=== PATIENT | female | born 1965 | race Caucasian/White ===

== ENCOUNTER 2023-04-24 18:29 | Emergency (ER) | payer BC, SELFPAY ==
--- NOTE | ~2023-04-24 | XR_ITS ---
EXAMINATION: [id number] INDICATION: Left-sided chest pain TECHNIQUE: A frontal view of the chest and 3 views of the left ribs were obtained. COMPARISON: 06/30/2019 FINDINGS: There are minimal airspace opacities of the left lung base. There is an acute, minimally di splaced fracture at the anterolateral aspect of the left sixth rib. There is a small pleural effusion . No pneumothorax is identified. Median sternotomy wires are consistent with interval cardiac surgery . Also noted are embolization coils in the right upper quadrant. IMPRESSION: 1. Acute, minimally displaced anterolateral fracture of the left sixth rib. 2. Minimal left basilar airspace opacity, likely atelectasis. Reviewed, dictated and finalized at location F.
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
[2023-04-24 18:50] VITALS: BP 163/100; PULSE 74; RESP 20; TEMP 36.5; O2SAT 99
== END 2023-04-24 19:48 | disposition home or self-care (01) ==
PROVIDERS: Emergency Provider Nurse Practitioner
DX: S22.32XA Fracture of one rib, left side, initial encounter for closed fracture (principal); W22.8XXA Striking against or struck by other objects, initial encounter; Y93.I1 Activity, roller coaster riding; I10 Essential (primary) hypertension
CPT/HCPCS: 71101; 99213; G0463

== ENCOUNTER 2024-09-02 09:14 | Emergency (ER) | payer BC, SELFPAY ==
--- OUTSIDE RECORDS SUMMARY | 2024-09-02 09:19 | XMS_ITS | Referral Summary ---
Author Organization [facility] Address [address] [place] [address] Care Team Providers Care Tank Refinisher Name Role Phone Unavailable Primary Care Provider Unavailabl e Source Comments [facility],non-owned Affiliates and Associated Physician Practices is amultiple site organization consisting of ambulatory clinics and hospital sitesin [place], [place], [place] and [place]. This disclosure is being madepursuant to the Care Everywhere program and may not contain all information available regarding this patient. Last updated 18.[facility] Allergies Active Allergy Reactions Criticality Noted Date Comments Oxcarbazepine 08/17/2014 Medications * Be aware that medications may not be up to date on this document. Alwaysverify current medications with the patient. Medication Sig Dispensed Refills Start Date End Date Status diazepam (VALIUM) 10 MG tablet 05/16/2014 Active gabapentin (NEURONTIN) 300 MG capsule 08/03/2014 Active phenazopyridine (PYRIDIUM) 200 MG tablet 07/03/2014 Active mirabegron ER 24hr (MYRBETRIQ) 50 MG tablet Take 1 Tab by mouth once daily. 30 Tab 11 09/04/2014 Active sulfamethoxazole-trim ethoprim (Bactrim DS) 800-160 MG tablet Take 1 (one) tablet by mouth 2 times daily 14 tablet 03/19/2023 Active Active Problems Problem Noted Date Diagnosed Date Bladder prolapse, female, acquired 08/17/2014 Abdominal pain 08/17/2014 Overview (04/15/2015): Social History Tobacco Use Types Packs/Day Years Used Date Smoking Tobacco: Never Tobacco Cessation:Counseling Given: No Alcohol Use Standard Drinks/Week Comments Yes 0 (1 standard drink = 0.6 oz pur e alcohol) occasional AUDIT-C Answer Date Recorded Q1: How often do you have a drink containing alcohol? Never 03/19/2023 Q2: How many drinks containi ng alcohol do you have on a typical day when you are drinking? Patient does not drink Q3: How often do you have si x or more drinks on one occasion? Never 03/19/2023 Sex and Gender Information Value Date Recorded Sex Assigned at Not on file Gender Identity Not on file Sexual Orientation Not on file Last Filed Vital Signs Vital Sign Reading Time Taken Comments Blood Pressure 153/93 03/19/2023 10:31 PM CDT Pulse 73 03/19/2023 10:31 PM CDT Temperature 36.5 C (97.7 F) 03/19/2023 8:13 PM CDT Respiratory Rate 17 03/19/2023 10:31 PM CDT Oxygen Saturation 98% 03/19/2023 10:31 PM CDT Inhaled Oxygen Concentration - - Weight 76.2 kg (168 lb) 03/19/2023 8:13 PM CDT Height 165.1 cm (5' 5 ) 03/19/2023 8:13 PM CDT Body Mass Index 27.96 03/19/2023 8:13 PM CDT Plan of Treatment Not on file Gladys Oscar Personal/Famil y Self 1965 [address] [place] [id number]
--- OUTSIDE RECORDS SUMMARY | 2024-09-02 09:19 | XMS_ITS | Clinical Summary ---
Author Organization [facility] Address [address] [place] [address] Care Team Providers Care Field Service Supervisor Name Role Phone Unavailable Primary Care Provider Unavailabl e Source Comments [facility],non-owned Affiliates and Associated Physician Practices is amultiple site organization consisting of ambulatory clinics and hospital sitesin [place], [place], [place] and [place]. This disclosure is being madepursuant to the Care Everywhere program and may not contain all information available regarding this patient. Last updated 18.[facility] Allergies Active Allergy Reactions Criticality Noted Date [...] 03/19/2023 8:13 PM CDT Plan of Treatment Health Maintenance Due Date Last Done Comments COLOGUARD (AGES 45-75) - COLON CA SCREENING 1965 COLON MONITORING 1967 COLONOSCOPY - COLON CA SCREENING 1967 CT COLONOGRAPHY - COLON CA SCREENING 1965 Colorectal Cancer Screening 1965 FIT - COLON CA SCREENING 1965 FLEX SIG - COLON CA SCREENING 1967 LIPID TESTING 1965 MAMMOGRAM 1965 PAP SMEAR 1967 HIV SCREENING 12/13/1982 HEPATITIS C SCREENING 12/09/1985 DTAP/TDAP/TD VACCINES (1 - Tdap) 12/13/1986 HEPATITIS B VACCINE (1 of 3 - 19+ 3-dose series) 12/13/1986 PNEUMOCOCCAL VACCINE 50+ (1 of 1 - PCV) 12/13/2017 ZOSTER VACCINE (1 of 2) 12/13/2017 COVID-19 VACCINE (5 - season) 2024 05/18/2022, 07/11/2021, 09/18/2020, Additional history exists INFLUENZA VACCINE (#1) 2024 2, 05/15/2020, 05/12/2018, Additional history exists DEPRESSION SCREENING 07/16/2024 HIB VACCINE Aged Out No longer eligi ble based on patient's age to complete this topic HPV VACCINE Aged Out No longer eligi ble based on patient's age to complete this topic MENINGOCOCCAL (Group B) VACCINE Aged Out No longer eligible based on patient's age to complete this topic MENINGOCOCCAL VACCINE Aged Out No amira fuad eligible based on patient's age to complete this topic PNEUMOCOCCAL VACCINE Aged Out No long er eligible based on patient's age to complete this topic Gladys Oscar Personal/Famil y Self 1965 [address] [place] [id number]
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
--- OUTSIDE RECORDS SUMMARY | 2024-09-02 09:19 | XMS_ITS | Clinical Summary ---
Author Organization [facility] Address [address] [place] [address] Care Team Providers Care Government Relations Director Name Role Phone None, Provider MD Primary Care Provider Unavaila ble Allergies Active Allergy Reactions Criticality Noted Date Comments Trazodone Seizure 09/04/2023 Medications ondansetron (ZOFRAN-ODT) 4 MG disintegrating tablet Take 1 tablet (4 mg total) by mouth every 8 (eight) hours as needed. 10 tablet 09/05/19 24 Active cephALEXin (KEFLEX) 500 MG capsule Take 1 capsule (500 mg total) by mouth every 6 (six) hours. 40 capsule 09/05/19 24 Active HYDROcodone-acetam inophen (NORCO) 5-325 MG tabletIndications: Acute Pain < 3 Day Supply Take 1 tablet by mouth every 6 (six) hours as needed. Indications: Acute Pain < 3 Day Supply Do not exceed 4g of acetaminophen in a day. 10 tablet 09/05/19 24 Active Social History Tobacco Use Types Packs/Day Years Used Date Smoking Tobacco: Never Smokeless Tobacco: Never Tobacco Cessation:Counseling Given: Not Answered Alcohol Use Standard Drinks/Week Comments Not Currently 0 (1 standard drink = 0.6 oz pur e alcohol) Comments Unknown Sex and Gender Information Value Date Recorded Sex Assigned at Not on file Legal Sex Female 4:23 PM CDT Gender Identity Not on file Sexual Orientation Not on file Last Filed Vital Signs Vital Sign Reading Time Taken Comments Blood Pressure 138/88 09/04/2023 11:39 PM SAP SD ANALYST Pulse 61 09/04/2023 11:39 PM [employer] SD ANALYST Temperature 36.6 C (97.9 F) 09/04/2023 9:11 PM SAP SD ANALYST Respiratory Rate 18 09/04/2023 11:39 PM SAP SD ANALYST Oxygen Saturation 100% 09/04/2023 11:39 PM SAP SD ANALYST Inhaled Oxygen Concentration - - Weight 75.8 kg (167 lb) 09/04/2023 9:11 PM SAP SD ANALYST Height 165.1 cm (5' 5 ) 09/04/2023 9:11 PM SAP SD ANALYST Body Mass Index 27.79 09/04/2023 9:11 PM SAP SD ANALYST Plan of Treatment Health Maintenance Due Date Last Done Comments Cervical Cancer Screening Pap Smear (Age 30 to 64) Every 3 Years 1967 Colorectal Cancer Screening Colonoscopy (10 Years) 1967 Annual Physical 12/13/1970 Hepatitis C 12/13/1985 Hepatitis B Vaccines (1 of 3 - 19+ 3-dose series) 12/13/1986 Cervical Cancer Screening Pap with HPV Testing (Age 30 to 64) Every 5 Years 12/13/1997 Cervical Cancer Screening with HPV 12/13/1997 Mammogram Screening 2007 Zoster Vaccines (1 of 2) 12/13/2017 COVID-19 Vaccine ( season) 2024 05/18/2022, 07/11/2021, 09/18/2020, Additional history exists Influenza Adult (#1) 2024 05/18/2022, 05/15/2020, 05/12/2018, Additional history exists DTaP, Tdap and Td Vaccines (2 - Td or Tdap) 05/18/2032 05/18/2022 Pneumococcal Vaccine: Pediatrics (0 to 5 Years) and At-Risk Patients (6 to 64 Years) Aged Out 05/18/2022 No longer eligible based on patient's age to complete this topic Meningococcal B Vaccine Aged Out No l onger eligible based on patient's age to complete this topic Meningococcal Vaccine Aged Out No amira fuad eligible based on patient's age to complete this topic RSV Immunizations Under 20 Months Aged Out No longer eligible based on patient's age to complete this topic Insurance [facility] Care Teams Government Relations Director Relationship Specialty Start Date End Date None, Provider, PCP - General UNKNOWN PHYSICIAN SPECIALTY 09/04/23
[2024-09-02 09:21] VITALS: BP 125/79; PULSE 91; RESP 18; TEMP 36.6; O2SAT 98
--- OUTSIDE RECORDS SUMMARY | 2024-09-02 09:21 | XMS_ITS | Clinical Summary ---
Author Organization [facility] Healthcare Address [address] [place] [address] Care Team Providers Care Entry Level Programmer Name Role Phone Nicolás Gonzalez MD Unavailable No, Physician Primary Care Provider [phone] Roshan Munson MD Unavailable Allergies Active Allergy Reactions Criticality Noted Date Comments Amlodipine Headache Low 10/23/2023 Oxcarbazepine Seizures High 07/15/2012 Spironolactone Other (See comments) Low 02/19/2024 Intolerance---lightheaded and groggy- Trazodone Seizures High Medications acetaminophen 500 mg capsuleIndicati ons:Pain Take 1-2 capsules (500-1,000 mg total) by mouth as needed Active aspirin 81 mg chewable tablet Take 1 tablet (81 mg total) by mouth daily 30 tablet 1 Active metoprolol XL (TOPROL-XL) 100 mg 24 hr tablet TAKE 1 TABLET(100 MG) BY MOUTH DAILY 90 tablet 3 2 Active irbesartan (AVAPRO) 150 mg tablet 1 tablet BID-dose increase on 03/25/2024 60 tablet 11 4 Active amLODIPine (NORVASC) 5 mg tablet Take 1 tablet (5 mg total) by mouth daily 90 tablet 3 4 04/23/20 25 Active prochlorperazin e (COMPAZINE) 10 mg tabletIndicatio ns:Nausea and Vomiting,migrai ne Take 1 tablet (10 mg total) by mouth 2 (two) times a day as needed for nausea or vomiting for up to 10 days 10 tablet 4 Active diphenhydrAMINE 25 mg capsule Take 1 tablet/capsule (25 mg total) by mouth every 6 (six) hours as needed for itching 20 capsule 4 Active Additional Information Patient not taking.Reported on 05/27/2024 Active Problems Problem Noted Date Diagnosed Date Right calf pain 02/15/2024 Headache 11/11/2023 Assessment & Plan (11/12/2023 1:01 PM CDT): - presented with phonophobia and photophobia; consistent with migraine headache - CTH performed 11/07 w/o evidence of acute intracranial process - improved with administration of IV magnesium - if headache persists consider consult to neurology - brain MRI performed 11/10: No acute intracranial abnormality. Scattered parenchymal microhemorrhages are nonspecific. Differential diagnosis would include hypertension, small cavernous malformations, or less likely amyloid angiopathy. 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 - hs sTr negative x3 - ECG w sinus bradycardia unchanged from prior - remains chest pain free Assessment & Plan (11/11/2023 10:32 AM CDT): - evaluation in the ED included CTA C/A/P w/o evidence of aortic dissection; 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 - hs sTr negative x3 - ECG w sinus bradycardia unchanged from prior Aftercare following surgery of the circulatory s ystem 09/28/2023 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 Plan: Patient scheduled for mesenteric artery angiogram. 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 Trace pericardial effusion on CT. Aortic aneurysm 12/04/2019 Assessment & Plan (11/12/2023 12:59 PM CDT): - CTA performed in the ED w/o evidence of aortic dissection and stable anuerysm of the celiac artery - s/p repair in 10/[address] surgery - continue metoprolol-XL 100 mg daily - continue ASA 81 mg daily Assessment & Plan (11/11/2023 10:37 AM CDT): - CTA performed in the ED w/o evidence of aortic dissection and stable anuerysm of the celiac artery - s/p repair in 10/[address] surgery - continue metoprolol-XL 100 mg daily - continue ASA 81 mg daily Other chest pain 05/12/2018 Assessment & Plan (05/13/2018 11:13 AM CDT): Resolved suspect related to hypertension urgency : serial troponins negative x2 Assessment & Plan (05/12/2018 5:16 PM CDT): Likely in setting of hypertensive urgency, trops neg x1, EKG unchanged from prior. CTA negative for dissection or PE. 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 Reviewed [facility] website with pt including meds/vaccines/mosquito bite prevention/and other travel precautions - typhoid vacc oral, 4 pills, take qod, keep refrigerated. - malarone for malaria ppx total #18 (start 1 day prior to leaving and continue for 7 days upon return) - cipro 500mg BIDx prn #6 for travellers diarrhea, pt instructed to take if diarrhea >1 day, bloody, or with fever. Can stop if symptoms subside Urinary frequency 10/30/2017 Hypertension, essential 07/26/2017 Overview (11/17/2019): BP been 90s-100s/60s-70s from normally SBP 130s, taking metop 12.5mg daily. Wasn't eating in hospital and just got her appetite back. States taking in enough fluids for consistent UOP. At times has orthostatic hoTN sx. -likely 2/2 poor PO. Soft BP will likely resolve as her appetite is back. Told her she can hold metop if BP persistently <110 and/or pt feels dizzy Assessment & Plan (11/12/2023 1:01 PM CDT): - patient was previously on regimen of hctz and irbesartan - stopped these agents due to worsening headaches - SBP 160s-180s in the ED, but this decreased to the 130s after the patient arrived on the floor w/o any medical intervention - restarted irbesartan 75mg daily (reduced from 150mg), started amlodipine 2.5mg daily, will continue holding hydrochlorothiazide Assessment & Plan (11/11/2023 10:47 AM CDT): - patient was previously on regimen of hctz and irbesartan - stopped these agents due to worsening headaches - SBP 160s-180s in the ED, but this decreased to the 130s after the patient arrived on the floor w/o any medical intervention -restarted irbesartan 75mg daily (reduced from 150mg), will continue holding hydrochlorothiazide for now. Assessment & Plan (02/14/2021 8:59 AM CDT): - VS Q4 hrs and PRN - Continue metoprolol 25 mg BID Assessment & Plan (12/20/2020 4:50 PM CDT): Impression: Blood pressure stable per patient. Plan: Continue blood pressure management as per Cardiology. Assessment & Plan (12/20/2019 1:30 PM CDT): - Continue home antihypertensives Assessment & Plan (12/19/2019 7:52 PM CDT): - Continue home antihypertensives Assessment & Plan (11/07/2019 6:31 PM CDT): Start Nicardipine for SBP < 120 mm Hg Assessment & Plan (11/06/2019 4:29 PM CDT): Hold HCTZ for renal protection Continue metoprolol XL Assessment & Plan (05/13/2018 11:12 AM CDT): Avoid nitroglycerin as caused blood pressure drop from 190/110 to 160 with mental status changes after getting sl NTG Blood pressures fluctuating per readings 99/67-124/83-155/111 Currently on carvedilol 6.25 mg bid, hctz 12.5 mg daily and irbesartan 75 mg daily Continue to monitor Assessment & Plan (05/12/2018 5:09 PM CDT): Uncontrolled on admission, now at goal -c/w home carvedilol 6.25mg bid, HCTZ 12.5mg qd, irbesartan 150mg qhs -avoid nitroglycerin Overactive bladder 07/26/2017 Hoarseness 01/25/2015 Bladder prolapse, female, acquired 08/17/2014 Aortic root dilatation (CMS/HCC) 03/02/2014 Assessment & Plan (12/20/2020 4:54 PM CDT): Impression: History of valve sparing root replacement on 11/07/2019 due to aortic root dilation. Plan: Continue current care as per Cardiology. Assessment & Plan (12/19/2019 7:52 PM CDT): - Status post TAA repair 11/07/[address] surgery - CT surgery consult as above to notify of admission Assessment & Plan (11/08/2019 1:59 PM CDT): Now s/p Valve sparing aortic root repair by Dr. Garcia. Standards of care to include: - SBP goal < 120 mm Hg; Start Metop if BP up-trending. Weaned off Cardene - colace, senna, miralax for bowel regimen - PT eval and treat - Start ASA daily - Start Lovenox for DVT ppx - OOBTC and ambulate today Assessment & Plan (11/07/2019 6:31 PM CDT): Now s/p Valve sparing aortic root repair by Dr. Garcia. Standards of care to include: - Keep SBP < 120 mm Hg; start Cardene if necessary - colace, senna for miralax - PT eval and treat once able to participate - Plan to start ASA POD 1 - Plan to start SQH POD 1 if chest tube output remains reasonable Assessment & Plan (11/12/2019 10:05 AM CDT): Now s/p Valve sparing aortic root repair by Dr. Garcia on 11/06 will continue the asa, metoprolol CTs and wires Out Lasix stopped due to dizziness yesterday, responded to 250 ml albumin. H/H stable 05/13 - no indication for transfusion Assessment & Plan (05/13/2018 11:12 AM CDT): CTA chest (05/12) no aortic dissection or PE, aortic root 4.4 x 4.3 cm (prior 07/2017 45 x 42 mm) Assessment & Plan (05/12/2018 5:08 PM CDT): CTA chest (05/12) no aortic dissection or PE, aortic root 4.4 x 4.3 cm (prior 07/2017 45 x 42 mm) -CTM Pain of upper extremity 10/16/2013 Overview (10/19/2016): Left upper limb pain Atrial fibrillation (CMS/HCC) 11/18/2012 Assessment & Plan (02/15/2021 7:46 AM CDT): - Continue PO metoprolol for rate control Resolved Problems Problem Noted Date Diagnosed Date Resolved Date Fever 12/20/2019 12/21/2019 Assessment & Plan (12/21/2019 2:16 PM CDT): Fever since Sunday with no clear associated new symptoms. She has mild leukocytosis, normal lymphocyte count and appears non-toxic. Negative UA, COVID- 19 x 2, RVP. Sternal wound without evidence of superficial infection and CT negative for deeper infection or other infectious source. Blood cultures NGTD. - No recurrent fever, leukocytosis resolved - Most likely associated with Guille's syndrome - Will d/c abx Assessment & Plan (12/20/2019 1:25 PM CDT): Fever since Sunday with no clear associated new symptoms. She has mild leukocytosis, normal lymphocyte count and appears non-toxic. No clear explantation with negative UA, COVID-19 x 1, RVP. Sternal wound without evidence of superficial infection and CT negative for deeper infection or other infectious source. Blood cultures less than 24 hour old; no apparent reason why she would be bacteremic. - Continue vanc and cefepime for now pending further info from blood cx's - Without any other reasonable explanation for fever, would COVID test a second time. Despite my multiple attempts to explain this she had a hard time understanding why one test is not good enough and is upset. Can check other COVID labs with next blood draw (D-dimer, CRP, ferritin, LDH) for prognostic indications and clotting risk. Chest pain 12/19/2019 12/21/2019 Assessment & Plan (12/21/2019 2:14 PM CDT): Ongoing postoperative chest pain, marcy-incisional but also with L chest pleuritic pain worsen when supine which would be c/w post cardiac injury syndrome. No pericardial effusion seen on her CT. She is HD stable. Her NAIR is persistent and unchanged since surgery; if no eventual improvement would be reasonable to do echo. - CRP elevated at 92.3 - Per CTS suspicious for Guille's syndrome - Some improvement on scheduled ibuprofen. Will add ppx PPI. Per d/w patient she would prefer to go ahead and add colchicine too as she is very anxious for this to resolve. She is aware to notify Dr. Garcia's office if she develops diarrhea. She will call Dr. Garcia's office next week to arrange f/u. Assessment & Plan (12/20/2019 1:30 PM CDT): Per her report to me, the marcy-incisional pain and the L chest pleuritic pain have not changed, ongoing since her surgery but better controlled while she still had oxycodone and more difficult to manage now that she is without it. - CT in ED with expected post-op findings and no other acute findings - No apparent surgical site infection - CTS to see - appreciate further input - Cardiac workup notable for EKG similar to prior, negative troponin, negative BNP for age. Pre-op cath recently showed non-obstructive CAD. - Pain control with APAP, oxycodone, and dilaudid for now Assessment & Plan (12/19/2019 9:17 PM CDT): - Patient with acute on chronic chest pain following TAA repair 11/07/19 now with associated fever to Tm 38.1, tachycardia, and leukocytosis - Workup in the ED included CT C/A/P with contrast which did not show dissection, PE, or other acute findings for the patient's chest pain. CXR showing left atelectasis and pleural effusion. - Infectious workup sent including COVID-19 (negative), BCX (NGTD), UA (negative). - Cardiac workup notable for EKG unchanged since previous admission, negative troponin, negative BNP for age. - Patient empirically given vanc/cefe in the ED - Will send RVP. - Patient's surgical site does not look acutely infected though does not rule out SSI given fever, tachycardia, leukocytosis, and pain - CT surgery consult in AM to notify of admission - Will continue empiric vancomycin/cefe for now. Highest ddx PNA vs SSI Pleural effusion 11/08/2019 11/11/2019 Assessment & Plan (11/09/2019 1:06 PM CDT): CXR w/L layering pleural effusion. Saturating > 95% on 2 L NC. - Wean oxygen for saturations > 92% - currently on room air - diuresis with Lasix- net neg goal 500-1L Assessment & Plan (11/08/2019 2:01 PM CDT): CXR w/L layering pleural effusion. Saturating > 95% on 2 L NC. - Wean oxygen for saturations > 92% - Allow for auto-diuresis Sore throat 11/08/2019 11/11/2019 Assessment & Plan (11/10/2019 11:06 AM CDT): CXR w/narrowing of the trachea. Pt c/o sore throat and slight dyspnea in the ICU, now resolved. - Dexamethasone 10 mg x 1 on 11/07 - currently no signs of distress, tolerating regular diet well and on room air - Hold off on repeating steroids given clinical stability Assessment & Plan (11/08/2019 2:11 PM CDT): CXR w/narrowing of the trachea. Pt c/o sore throat and slight dyspnea. However, once re-positioned in the bed was no longer having SOB. No desaturations. No stridor or evidence of airway obstruction. Likely routine post-intubation soreness. - Dexamethasone 10 mg x 1 - Hold off on repeating steroids given clinical stability - If any evidence of airway obstruction (stridor, desaturations) re-dose steroids and call for difficult airway - If c/o worsening sore throat consider ENT consult - Advancing diet Acute pain 11/07/2019 12/21/2019 Assessment & Plan (12/19/2019 7:51 PM CDT): - Patient with acute on chronic pain as described above. Per CT surgery clinic notes patient had significant issue with post-operative pain during admission for surgery. - Continue home pain regimen with additional dilaudid PRN Assessment & Plan (11/17/2019 5:22 PM CDT): POD 10 s/p aortic root replacement. Sternal pain is better but still severe. Been taking oxycodone 5-10mg q4h (usually 5mg during the day). Scant black-red drainage from her wound, no purulent drainage, no erythema around wound. Has had some low grade fevers to mid 99F. -wound looks good today without s/o infection -f/u with Dr Garcia supposed to be for 4w but will let him know about pt's ongonig post-op pain to see if any sooner appt needed -advised scheduled tylenol, naproxen for breakthrough, continue oxycodone 10mg q4h. -cont IS. referrall to PT placed for weakness Assessment & Plan (11/12/2019 10:06 AM CDT): Expected 2/2 cardiac surgery. c/o chest soreness with only mild improvement, still taking Oxy 7.5 q 3 hours. Strnum stable with cough, incision healing well, NO sign of infection Will continue the Gabapentin Heating pad to sternum Assessment & Plan (11/08/2019 12:23 PM CDT): Expected 2/2 cardiac surgery. c/o chest soreness. - Continue Tylenol scheduled - Increase Oxy to 7.5 mg q 3 hrs - Decrease frequency of dilaudid to q4 hr PRN For breakthrough pain - d/c Dilaudid for breakthrough pain prior to TTF Assessment & Plan (11/07/2019 6:27 PM CDT): Expected 2/2 cardiac surgery. Reported to require large amount of pain meds in the OR. - Fentanyl bolus prior to extubation - Tylenol x 1 and Oxy x 1 prior to extubation After extubation, - Start scheduled Tylenol x 3 days - Start Oxy 5 mg q 4 hr PRN - Start Dilaudid 0.2 mg q 2 hr PRN Acute respiratory failure 11/07/2019 Assessment & Plan (11/07/2019 6:33 PM CDT): Post procedural short-term ventilator support with anticipated extubation. Reported to be an easy airway. - CXR - PSV w/goal of extubation once hemodynamically stable 1720: Extubated to nasal cannula COVID-19 virus not detected 11/06/2019 02/15/2021 Assessment & Plan (11/06/2019 4:30 PM CDT): covid test performed 11/03 is negative Palpitations 02/27/2018 11/08/2019 Assessment & Plan (11/06/2019 4:29 PM CDT): Continue beta martínez Encounters Date Type Department Care Team Description 06/30/2024 10:00 AM STRIKE ON MACHINE OPERATOR Procedure visit [facility] [address] [place] [address] SERA (obstructive sleep apnea) (Primary Dx); Snoring from Last 3 Months Immunizations Immunization Administration Dates Next Due Influenza, Quadrivalent, Spl it, Preservative Free, Intramuscular 05/12/2018 Influenza, Trivalent, IM (MDV) 07/26/2017 Influenza, Unspecified 07/04/2012 Pfizer SARS-CoV-2 Monovalent Vaccination (12+ Yrs) PURPLE 09/18/2020,08/26/2020 Surgical History Surgery Date Site/Laterality Comments EPIDURAL INJECTION LUMBOSACRAL 11/25/2013 N/A THORACIC AORTIC ANEURYSM REPAIR 11/07/2019 N/A valve sparing root replacement HYSTERECTOMY 07/16/2004 - 07/15/2005 HEPATIC ARTERY STENT 07/16/2012 - 07/15/2013 CARDIAC CATHETERIZATION 11/05/2020 INCONTINENCE SURGERY 2004 and 2013 - removed in 2017 Medical History Medical History Date Comments Hypertension Atrial fibrillation (CMS/HCC) (HCC) VT (ventricular tachycardia) (HCC) Heart palpitations PVCs (premature ventricular contractions) 8 Chronic back pain 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 Thoracic aortic aneurysm wit hout rupture (HCC) 11/06/2019 Hepatic artery aneurysm (CMS/HCC) (HCC) 06/15/20 20 Delayed emergence from general anesthesia COVID-19 virus not detected 11/06/2019 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 DDD (degenerative disc disease), cervical Foraminal stenosis of cervical region Frozen shoulder, left 08/22/2022 Family History Medical History Relation Name Comments Atrial fibrillation Mother Family h istory of atrial fibrillation - (Added by TW Conv) Heart disease Mother arrythmia Heart failure Mother Anesthesia problems Neg Hx Relation Name Status Comments Mother Social History Tobacco Use Types Packs/Day Years Used Date Smoking Tobacco: Never Smokeless Tobacco: Never Tobacco Cessation:Counseling Given: Not Answered Alcohol Use Standard Drinks/Week Comments Not Currently 0 (1 standard drink = 0.6 oz pur e alcohol) 1 glass with diner sometimes AUDIT-C Answer Date Recorded Q1: How often do you have a drink containing alc ohol? 2-4 times a month 02/11/2021 Q2: How many drinks containi ng alcohol do you have on a typical day when you are drinking? 1 or 2 02/11/2021 Q3: How often do you have si x or more drinks on one occasion? Never 02/11/2021 Personal Safety Answer Date Recorded Have you ever been in or are you currently in a harmful physical or emotional relationship or is someone making you feel afraid or unsafe? 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 Not on file Not on file Not on file Obstetrics History Last Filed Vital Signs Vital Sign Reading Time Taken Comments Blood Pressure 116/80 05/27/2024 2:38 PM STRIKE ON MACHINE OPERATOR Pulse 66 05/27/2024 2:38 PM STRIKE ON MACHINE OPERATOR Temperature 36.9 C (98.5 F) 05/27/2024 2:38 PM STRIKE ON MACHINE OPERATOR Respiratory Rate 16 05/13/2024 5:10 AM CDT Oxygen Saturation 96% 05/27/2024 2:38 PM STRIKE ON MACHINE OPERATOR Inhaled Oxygen Concentration - - Weight 76.9 kg (169 lb 8 oz) 05/27/2024 2:38 PM STRIKE ON MACHINE OPERATOR Height 165.1 cm (5' 5 ) 05/27/2024 2:38 PM STRIKE ON MACHINE OPERATOR Body Mass Index 28.21 05/27/2024 2:38 PM STRIKE ON MACHINE OPERATOR Plan of Treatment Health Maintenance Due Date Last Done Comments Breast Cancer Screening-Mammogram 1967 Colon Cancer Screening-Colonoscopy 1965 Depression Screening 1967 Hepatitis C Screening 1967 DTaP/Tdap/Td Vaccine (1 - Tdap) 12/13/1978 Hepatitis B Screening 12/13/1985 Regular Well Visit/Exam 18-64 12/13/1985 Zoster Vaccine (1 of 2) 12/13/2017 Covid-19 Vaccine (3 - 2023-2 5 season) 2024 09/18/2020, 08/26/2020 Influenza Vaccine (#1) 2024 , 07/26/2017, 07/04/2012 Pneumococcal vaccine <65 Aged Out No longer eligible based on patient's age to complete this topic Goals Goal Patient Goal Type Associated Problems Recent Progress Patient-Stated? Author Drink more water Diet Improving(10/2019 11:31 AM CDT) No Timothy Man, [employer] Medical Devices Implanted Type Area Process Planner Device Identifier Shelf Expiration Date Model / Serial / Lot [employer] Care [id number] Hemashield Yocha Dehe 30mm 30cm Woven Smooth Needle Passage Suture - [id number] - [id number] Implanted:Qty: 1 on 11/07/2019 by Jessie Henry MD at [facility] Graft N/A: Heart [employer] 05/15/2024 [id number] / [id number] [employer] [id number] Angio-Seal Evolution 6fr .035in Guidewire Bypass Tube Suture - [id number] Implanted:Qty: 1 on 11/06/2019 by Hiro Soto MD at [facility] Other - see comments Left: Arterial [employer] [id number] / / Description:6F Angio-Seal Ev olution Procedures Procedure Name Priority Date/Time Associated Diagnosis Comments PORTABLE/HOME SLEEP STUDY Routine 06/30/2024 10:00 PM STRIKE ON MACHINE OPERATOR Snoring from Last 3 Months Results * PORTABLE/HOME SLEEP STUDY (06/30/2024 10:00 PM STRIKE ON MACHINE OPERATOR) Narrative Cali Fallon MD - 06/30/2024 10:00 PM STRIKE ON MACHINE OPERATOR Cali Fallon MD 07/22/2024 4:22 PM Portable/Home Sleep Study Date/Time: 06/30/2024 10:00 PM Performed by: Jovanny Garvey NP Authorized by: Jovanny Garvey NP Jovanny Garvey [facility] ORDERABLES Candy l Result from Last 3 Months Insurance [place] Advance [place]ives For more information, please contact: [phone] * Full Code (Latest Code Status on File) Date Activated Date Inactivated Comments 11/10/2023 2:24 PM 11/12/2023 6:25 PM * Full Code Date Activated Date Inactivated Comments 02/11/2021 4:13 PM 02/18/2021 4:40 PM * Full Code Date Activated Date Inactivated Comments 12/19/2019 9:19 PM 12/21/2019 5:40 PM * Full Code Date Activated Date Inactivated Comments 11/06/2019 2:43 PM 11/12/2019 9:30 PM * Full Code Date Activated Date Inactivated Comments 11/06/2019 2:43 PM 11/06/2019 2:43 PM Care Teams Entry Level Programmer Relationship Specialty Start Date End Date No, Physician PCP - General 01/11/21 Nicolás Gonzalez MD Consulting Physician Cardiology 09/15/19 Roshan Munson MD Surgeon Vascular Surgery 02/18/21
--- OUTSIDE RECORDS SUMMARY | 2024-09-02 09:21 | XMS_ITS | Referral Summary ---
Author Organization [facility] Healthcare Address [address] [place] [address] Care Team Providers Care Cert Occupational Therapy Asst Name Role Phone Nicolás Gonzalez MD Unavailable No, Physician Primary Care Provider [phone] Roshan Munson MD Unavailable [phone] Encounters Date Type Department Care Team Description 06/30/2024 10:00 AM GLASS BLOWER Procedure visit [facility] Neuro Sleep [address] [facility] 6th [address] [place] [address] SERA (obstructive sleep apnea) (Primary Dx); Snoring from Last 3 Months Allergies Active Allergy Reactions Criticality Noted Date [...] ICU for initial recovery, transferred out to [facility] 02/13 PM - NGT discontinued 02/13 - + BM 02/16 - Advance to regular - ASA daily - PT, OT evaluate and treat - DC pa - Epidural dc'd by Pain Service 02/17 - DC OVEN BUILDER, start PO oxy Assessment & Plan (12/20/2020 [...] counseling 03/26/2018 Overview (03/27/2018): Pt traveling to [facility] for mission work in [place] for 10 days in June 2018. Reviewed [facility] website with pt including meds/vaccines/mosquito bite prevention/and [...] (11/06/2019 4:29 PM CDT): Continue beta martínez Immunizations Immunization Administration Dates Next Due Influenza, Quadrivalent, Spl it, Preservative Free, Intramuscular 05/12/2018 Influenza, Trivalent, IM (MDV) 07/26/2017 Influenza, Unspecified 07/04/2012 Pfizer SARS-CoV-2 Monovalent Vaccination (12+ Yrs) PURPLE 09/18/2020,08/26/2020 Social History Tobacco Use Types Packs/Day Years [...] on file Legal Sex Female 1:11 AM GLASS BLOWER Gender Identity Female 11/27/2019 1:21 PM CDT Sexual Orientation Straight 11/27/2019 1: 21 PM CDT 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 Not on file Not on file Last Filed Vital Signs Vital Sign Reading Time Taken Comments Blood Pressure 116/80 05/27/2024 2:38 PM GLASS BLOWER Pulse 66 05/27/2024 2:38 PM GLASS BLOWER Temperature 36.9 C (98.5 F) 05/27/2024 2:38 PM GLASS BLOWER Respiratory Rate 16 05/13/2024 5:10 AM CDT Oxygen Saturation 96% 05/27/2024 2:38 PM GLASS BLOWER Inhaled Oxygen Concentration - - Weight 76.9 kg (169 lb 8 oz) 05/27/2024 2:38 PM GLASS BLOWER Height 165.1 cm (5' 5 ) 05/27/2024 2:38 PM GLASS BLOWER Body Mass Index 28.21 05/27/2024 2:38 PM GLASS BLOWER Plan of Treatment Not on file Goals Goal Patient Goal Type Associated Problems Recent Progress Patient-Stated? Author Drink more water Diet Improving(10/2019 11:31 AM CDT) No Timothy Man, [employer] Medical Devices Implanted Type Area Cad Cam Programmer Device Identifier Shelf Expiration Date Model / Serial / Lot Zynstra [id number] Hemashield Sagola 30mm 30cm Woven Smooth Needle Passage Suture - [id number] - [id number] Implanted:Qty: 1 on 11/07/2019 by Jessie Henry MD at [facility] Graft N/A: Heart [employer] 05/15/2024 [id number] / [id number] 20 / 19L20 [employer] [id number] Angio-Seal Evolution 6fr .035in Guidewire Bypass Tube Suture - [id number] Implanted:Qty: 1 on 11/06/2019 by Hiro Soto MD at [facility] Other - see comments Left: Arterial [employer] [id number] / / Description:6F Angio-Seal Ev olution Procedures Procedure Name Priority Date/Time Associated Diagnosis Comments PORTABLE/HOME SLEEP STUDY Routine 06/30/2024 10:00 PM GLASS BLOWER Snoring from Last 3 Months Results * PORTABLE/HOME SLEEP STUDY (06/30/2024 10:00 PM GLASS BLOWER) Narrative Cali Fallon MD - 06/30/2024 10:00 PM GLASS BLOWER Cali Fallon MD 07/22/2024 4:22 PM Portable/Home Sleep Study Date/Time: 06/30/2024 10:00 PM Performed by: Jovanny Garvey NP Authorized by: Jovanny Garvey NP Jovanny Garvey NP [facility] ORDERABLES Candy l Result from Last 3 Months Insurance [place] For more information, please contact: [phone] * Full Code (Latest Code Status on [...] 2:43 PM 11/06/2019 2:43 PM Care Teams Cert Occupational Therapy Asst Relationship Specialty Start Date End Date No, Physician PCP - General 01/11/21 Nicolás Gonzalez MD Consulting Physician Cardiology 09/15/19 Roshan Munson MD Surgeon Vascular Surgery 02/18/21
--- OUTSIDE RECORDS SUMMARY | 2024-09-02 09:21 | XMS_ITS | Encounter Summary ---
Author Organization [facility] Address [address] [place] [address] Phone Care Team Providers Care Recreation Therapy Aides Teacher Name Role Phone No, Physician Primary Care Provider No, Physician Primary Care Provider Chicho Chapa MD Primary Care Provider [phone] No, Physician Primary Care Provider Chicho Chapa MD Primary Care Provider [phone] No, Physician Primary Care Provider Chicho Chapa MD Primary Care Provider [phone] No, Physician Primary Care Provider Chicho Chapa MD Primary Care Provider No, Physician Primary Care Provider Gilberto Newman Primary Care Provider Unavail able No, Physician Primary Care Provider Gilberto Newman Primary Care Provider Unavail able No, Physician Primary Care Provider Gilberto Newman Primary Care Provider Unavail able No, Physician Primary Care Provider Nicholas Newmanemy Primary Care Provider Unavail able No, Physician Unavailable Gilberto Newman Unavailable Unavailable Kian Hernandez MD PhD Primary Care Provider [phone] Unknown, Notinfile Primary Care Provider Unavail able Kian Hernandez MD PhD Primary Care Provider [phone] Nicolás Gonzalez MD Unavailable [phone] Patel Garcia MD Unavailable Ayanna Nuñez MD Primary Care Provid er No, Physician Primary Care Provider [phone] Roshan Munson MD Unavailable [phone] Encounter Details Date Type Department Care Team (Latest Contact Info) Description 07/17/2017 Orders Only [facility] CONVERSION Scanning, Provider Social History Tobacco Use Types Packs/Day Years Used Date Smoking Tobacco: Never Assessed Alcohol Use Standard Drinks/Week Comments No 0 (1 standard drink = 0.6 oz pur e alcohol) Comments Unknown Sex and Gender Information Value Date Recorded Sex Assigned at Not on file 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 Gender Identity Female 11/27/2019 1:21 PM CDT Sexual Orientation Straight 11/27/2019 1: 21 PM CDT documented as of this encounter Plan of Treatment Not on file documented as of this encounter Procedures Procedure Name Priority Date/Time Associated Diagnosis Comments VASCULAR LABORATORY REPORT 07/17/2017 6:59 PM FOUNTAIN SERVER documented in this encounter Results * VASCULAR LABORATORY REPORT (07/17/2017 6:59 PM FOUNTAIN SERVER) Anatomical Region Laterality Modality Ultrasound us Provider Scanning CV VASCULAR PROCEDURES Final R esult documented in this encounter Visit Diagnoses Not on filedocumented in this encounter Additional Health Concerns Infection Onset Date Last Indicated Resolved Time COVID: Suspected 11/04/2019 11/04/2019 11/05/2019 11:36 PM CDT Respiratory Infection (ODILIA), contact + droplet Comment:Automatically added due to negative COVID-19 result. Pre-op screening Bernie Buck 11/06/2019 11/05/2019 11/05/2019 11/06/2019 1:10 PM C DT COVID: Suspected Comment:Per ID review COVID isolation can be discontinued. ED notified COVID precautions can be removed. Adal IPS 12/19/19 12/19/2019 12/19/2019 12/19/2019 5:36 PM CDT COVID: Suspected Comment:IP/ID review: pt cleared from precautions Bernie Buck 12/21/2019 12/20/2019 12/20/2019 12/21/2019 10:49 AM CDT COVID: Suspected 05/12/2024 05/13/2024 05/13/2024 3:59 AM CDT documented as of this encounter Care Teams Recreation Therapy Aides Teacher Relationship Specialty Start Date End Date No, Physician PCP - General 07/17/17 07/17/17 No, Physician PCP - General 07/18/17 07/18/17 Chicho Chapa MD [address] [place], [place] [id number] PCP - General 07/19/17 07/22/17 No, Physician PCP - General 07/23/17 07/23/17 Chicho Chapa MD [address] [place] [address] PCP - General 07/24/17 07/24/17 No, Physician PCP - General 07/25/17 07/25/17 Chicho Chapa MD [address] [place] [address] PCP - General 07/26/17 07/26/17 No, Physician PCP - General 07/27/17 07/30/17 Chicho Chapa MD [address] [place] [address] PCP - General 07/31/17 08/07/17 No, Physician PCP - General 08/08/17 09/09/17 Gilberto Newman [address] [place] [address] PCP - General 09/10/17 09/10/17 No, Physician PCP - General 09/11/17 09/16/17 Gilberto Newman [address] [place] [address] PCP - General 09/17/17 11/02/17 No, Physician PCP - General 11/03/17 11/06/17 Gilberto Newman [address] [place] [address] PCP - General 11/07/17 11/11/17 No, Physician PCP - General 11/12/17 11/12/17 Gilberto Newman [address] [place] [address] PCP - General 11/13/17 06/29/19 Kian Hernandez MD PhD [address] [place] [address] [place] [address] PCP - General Internal Medicine 06/30/19 09/08/19 Unknown, Notinfile PCP - General 09/09/19 09/11/19 Kian Hernandez MD PhD PCP - General Internal Medicine 09/12/19 12/31/20 Ayanna Nuñez MD PCP - General 01/01/21 01/10/21 No, Physician PCP - General 01/11/21 No, Physician 11/07/17 11/11/17 Gilberto Newman 11/12/17 09/14/19 Nicolás Gonzalez MD Consulting Physician Cardiology 09/15/19 Patel Garcia MD Surgeon Cardiothoracic Surgery 11/12/19 01/13/21 Roshan Munson MD Surgeon Vascular Surgery 02/18/21 documented as of this encounter
--- OUTSIDE RECORDS SUMMARY | 2024-09-02 09:21 | XMS_ITS | Encounter Summary ---
Author Organization [facility] Address [address] [place] [address] Phone Care Team Providers Care Bank Messenger Name Role Phone Gilberto Newman Primary Care Provider Unavail able Gilberto Newman Unavailable Unavailable Kian Hernandez MD PhD Primary Care Provider [phone] Unknown, Notinfile Primary Care Provider Unavail able Kian Hernandez MD PhD Primary Care Provider [phone] Nicolás Gonzalez MD Unavailable [phone] Patel Garcia MD Unavailable Ayanna Nuñez MD Primary Care Provid er No, Physician Primary Care Provider Roshan Munson MD Unavailable [phone] Encounter Details Date Type Department Care Team (Late st Contact Info) Description 02/12/2018 Telephone [facility] Cardiology [address] [facility] 8th [place] [address] [place] [address] Nicolás Gonzalez MD [address] [facility] [address] [place] [address] Social History Tobacco Use Types Packs/Day Years Used Date Smoking Tobacco: Never Alcohol Use Standard Drinks/Week Comments No 0 (1 standard drink = 0.6 oz pur e alcohol) Comments Unknown Sex and Gender Information Value Date Recorded Sex Assigned at Not on file 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 Gender Identity Female 11/27/2019 1:21 PM CDT Sexual Orientation Straight 11/27/2019 1: 21 PM CDT documented as of this encounter Plan of Treatment Not on file documented as of this encounter Visit Diagnoses Not on filedocumented [...] documented as of this encounter Care Teams Bank Messenger Relationship Specialty Start Date End Date Gilberto Newman PCP - General 11/13/17 06/29/19 Kian Hernandez MD PhD [address] [facility], [place] [address] PCP - General Internal Medicine 06/30/19 09/08/19 Unknown, Notinfile PCP - General 09/09/19 09/11/19 Kian Hernandez MD PhD PCP - General Internal Medicine 09/12/19 12/31/20 Ayanna Nuñez MD PCP - General 01/01/21 01/10/21 No, Physician PCP - General 01/11/21 Gilberto Newman 11/12/17 09/14/19 Nicolás Gonzalez MD Consulting Physician Cardiology 09/15/19 Patel Garcia MD Surgeon Cardiothoracic Surgery 11/12/19 01/13/21 Roshan Munson MD Surgeon Vascular Surgery 02/18/21 documented as of this encounter
--- OUTSIDE RECORDS SUMMARY | 2024-09-02 09:21 | XMS_ITS | Encounter Summary ---
Author Organization [facility] Address [address] [place] [address] Phone Care Team Providers Care Client Service Professional Name Role Phone Torin Prince MD Primary Care Provider Torin Prince MD Primary Care Provider No, Physician Primary Care Provider Chicho Chapa MD Primary Care Provider [phone] No, Physician Primary Care Provider Soniya, Physician Primary Care Provider Chicho Chapa MD Primary Care Provider [phone] No, Physician Primary Care Provider Chicho Chapa MD Primary Care Provider [phone] No, Physician Primary Care Provider Chicho Chapa MD Primary Care Provider [phone] No, Physician Primary Care Provider Chicho Chapa MD Primary Care Provider [phone] No, Physician Primary Care Provider Gilberto Newman Primary Care Provider Unavail able No, Physician Primary Care Provider Gilberto Newman Primary Care Provider Unavail able No, Physician Primary Care Provider [phone] Julissa Newmany Primary Care Provider Unavail able No, Physician Primary Care Provider [phone] TrentGilberto rangel Primary Care Provider Unavail able No, Physician Unavailable Trent Gilberto Unavailable Unavailable Kian Hernandez MD PhD Primary Care Provider [phone] Unknown, Notinfile Primary Care Provider Unavail able Kian Hernandez MD PhD Primary Care Provider [phone] Nicolás Gonzalez MD Unavailable Patel Garcia MD Unavailable Ayanna Nuñez MD Primary Care Provid er No, Physician Primary Care Provider Roshan Munson MD Unavailable [phone] Encounter Details Date Type Department Care Team (Latest Contact Info) Description 06/28/2012 Orders Only [facility] Scanning, Provider Social History Tobacco Use Types Packs/Day Years Used Date Smoking Tobacco: Never Assessed Comments Unknown Sex and Gender Information Value Date Recorded Sex Assigned at Not on file 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 Gender Identity Female 11/27/2019 1:21 PM CDT Sexual Orientation Straight 11/27/2019 1: 21 PM CDT documented as of this encounter Plan of Treatment Not on file documented as of this encounter Procedures Procedure Name Priority Date/Time Associated Diagnosis Comments CARDIOLOGY DOCUMENT SCAN 06/28/2012 documented in this encounter Results * CARDIOLOGY DOCUMENT SCAN (06/28/2012) Anatomical Region Laterality Modality Other us Provider Scanning CV CARDIAC SERVICES PROCEDURES Final Result documented in this encounter Visit Diagnoses Not [...] documented as of this encounter Care Teams Client Service Professional Relationship Specialty Start Date End Date Torin Prince MD [address] [place] [address] PCP - General 05/12/09 09/24/13 Torin Prince MD [address] [place] [address] PCP - General 09/25/13 07/13/17 No, Physician PCP - General 07/14/17 07/15/17 Chicho Chapa MD [address] [place] [address] PCP - General 07/16/17 07/16/17 No, Physician PCP - General 07/17/17 07/17/17 No, Physician PCP - General 07/18/17 07/18/17 Chicho Chapa MD [address] [place] [address] PCP - General 07/19/17 07/22/17 No, Physician PCP - General 07/23/17 07/23/17 Chicho Chapa MD [address] [place] [address] PCP - General 07/24/17 07/24/17 No, Physician PCP - General 07/25/17 07/25/17 Chicho Chapa MD [address] [place] [address] PCP - General 07/26/17 07/26/17 No, Physician PCP - General 07/27/17 07/30/17 Chicho Chapa MD [address] [place] [address] PCP - General 07/31/17 08/07/17 No, Physician PCP - General 08/08/17 09/09/17 Gilberto Newman [address] [place] [address] PCP - General 09/10/17 09/10/17 No, Physician PCP - General 09/11/17 09/16/17 Gilberto Newman [address] [place] [address] PCP - General 09/17/17 11/02/17 No, Physician PCP - General 11/03/17 11/06/17 Gilberto Newman [address] [place] [address] PCP - General 11/07/17 11/11/17 No, Physician PCP - General 11/12/17 11/12/17 Gilberto Newman [address] [place] [address] PCP - General 11/13/17 06/29/19 Kian Hernandez MD PhD [address] [facility] [address] [place] [address] PCP - General Internal Medicine 06/30/19 09/08/19 [...]
[2024-09-02 09:30] LABS: EDUAAPPEAR Clear; EDUABILI 1+ (Negative); EDUABLOOD 3+ (Negative); EDUACOLOR1 Yellow; EDUAGLUCOSE Trace (Negative); EDUAKETONE Trace (Negative); EDUALEUKO Trace (Negative); EDUANITRATE Positive (Negative); EDUAPROTEIN 3+ (Negative)
--- NOTE | 2024-09-02 09:32 | ED_ITS ---
HPI - General Adult General Chief complaint: Urogenital-Female Stated complaint: UTI History of Present Illness HPI narrative: Gladys Oscar A 58-year-old female who presents today with complaints of having 2 weeks of urinary pressure, dysuria and starting yesterday she started to have some left lower flank pain. 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 trazodone Allergy Severe SEIZURES Verified 09/02/24 09:35 Review of Systems Review of Systems: All systems reviewed & are unremarkable except as noted in HPI and below PMFSH Family History Family History Grandparent Family history of malignant neoplasm of breast Mother Family history of coronary artery disease Sibling Family history of malignant neoplasm of breast in first degree relative Social History Social History Smoking status: Never smoker Alcohol intake: never Gender identity (if verbalized by the patient): Female Exam Narrative: GENERAL: Well-appearing, well-nourished, and in no acute distress. HEAD: Normocephalic, atraumatic. EYES: PERRLA and EOMI. ENT: Nares clear, no rhinorrhea or epistaxis. Mucous membranes moist. NECK: Supple. No adenopathy or masses. No carotid bruits or JVD CHEST: Clear to auscultation. No respiratory distress. No wheezes rales or rhonchi HEART: Regular rate and rhythm. No murmur heard. Normal peripheral pulses. ABDOMEN: Soft, nontender, nondistended, normal active bowel sounds. EXTREMITIES: Normal range of motion. No edema. SKIN: Warm, dry, no rash. NEURO: No focal deficits. Alert and oriented x3. PSYCH: Normal mood and affect. Course Course Level of Care: Express Care Visit Vital Signs Vital signs: Vital Signs Temperature 36.6 C 09/02/24 09:21 Pulse Rate 91 09/02/24 09:21 Respiratory Rate 18 09/02/24 09:21 Blood Pressure 125/79 09/02/24 09:21 Pulse Oximetry 98 09/02/24 09:21 Oxygen Delivery Room Air 09/02/24 09:21 Temperature 36.6 C 09/02/24 09:21 Pulse Rate 91 09/02/24 09:21 Respiratory Rate 18 09/02/24 09:21 Blood Pressure 125/79 09/02/24 09:21 Pulse Oximetry 98 09/02/24 09:21 Oxygen Delivery Room Air 09/02/24 09:21 Medical Decision Making MDM Narrative Medical decision making narrative: 58-year-old female who presents with complaints symptoms consistent with urinary tract infection. Urine dip in the office is positive for blood, nitrates, leukocytes. In the setting that she has had symptoms for 2 weeks and now with left flank pain will start her on antibiotic coverage to cover for pyelonephritis. Will send a urine culture to ensure she is being treated with the appropriate antibiotics. Will start her on Bactrim b.i.d. for 10 days. Encouraged to push oral hydration of water continues take Tylenol Motrin for the pain. Close follow-up with PCP. Patient given strict return precautions if she develops any worsening symptoms or if she develops any vomiting unable to keep liquids or antibiotics down. all questions answered. Vital Signs Vital Signs: Vital Signs Temperature 36.6 C 09/02/24 09:21 Pulse Rate 91 09/02/24 09:21 Respiratory Rate 18 09/02/24 09:21 Blood Pressure 125/79 09/02/24 09:21 Pulse Oximetry 98 09/02/24 09:21 Oxygen Delivery Room Air 09/02/24 09:21 Temperature 36.6 C 09/02/24 09:21 Pulse Rate 91 09/02/24 09:21 Respiratory Rate 18 09/02/24 09:21 Blood Pressure 125/79 09/02/24 09:21 Pulse Oximetry 98 09/02/24 09:21 Oxygen Delivery Room Air 09/02/24 09:21 Vitals reviewed by me Lab Data Lab results reviewed: Yes I reviewed the patient's lab results. Labs: Lab Results 09/02/24 Range/Units 09:27 POC Urine Color Yellow POC Urine Clarity Clear POC Urine pH 5.0 POC Ur Specif [place] 1.030 POC Urine Protein 3+ (Negative) POC Ur Glucose (UA) Trace (Negative) POC Urine Ketones Trace (Negative) POC Urine Blood 3+ (Negative) POC Urine Nitrite Positive (Negative) POC Urine Bilirubin 1+ (Negative) POC Urine Urobilinogen 1.0 POC U Leukocyte Esteras Trace (Negative) Discharge Plan Discharge Clinical Impression: Pyelonephritis Urinary tract infection Qualifiers: Urinary tract infection type: acute cystitis Hematuria presence: with hematuria Qualified Code(s): N30.01 - Acute cystitis with hematuria Patient Disposition: Home, Self-Care Condition: Stable Instructions: Antibiotic Form Additional Instructions: start taking the antibiotics as ordered, push oral hydration drinking plenty of fluids, follow-up with her primary care doctor in the next week to ensure you are improving. I expect that he should feel improvement within 48 hours of starting antibiotics. If he develops any worsening symptoms or unable to keep the antibiotics or the fluids down then proceed to the ER. Patient Language: Libyan Prescriptions: New sulfamethoxazole-trimethoprim [Bactrim DS] 800-160 mg tablet 1 tablet PO Q12H Qty: 20 0RF No Action metoprolol succinate 25 mg tablet extended release 24 hr 50 mg PO DAILY tramadol 50 mg tablet 50 mg PO Q6H PRN (Reason: pain) Qty: 20 0RF Follow-up/Referrals: PHYSICIAN,ELECTRICAL HELPER [Primary Care Provider] - Time of Disposition: 09:36
== END 2024-09-02 09:45 | disposition home or self-care (01) ==
PROVIDERS: Emergency Provider Nurse Practitioner Family
DX: N12 Tubulo-interstitial nephritis, not specified as acute or chronic (principal); N30.01 Acute cystitis with hematuria
CPT/HCPCS: 81003; 87086; 99213; G0463

== ENCOUNTER 2024-10-02 18:57 | Emergency (ER) | payer BC, SELFPAY ==
--- NOTE | ~2024-10-02 | CT_ITS ---
CT of the Abdomen and Pelvis: Indication: Abdominal pain Technique: 2.5 mm axial scans were obtained through the abdomen and pelvis following intravenous adm inistration of 100 cc of Omnipaque 350. Dose reduction technique was used on this scan by utilizing a utomated exposure control and iterative reconstruction technique. The dose-length product (DLP) was 5 87.60 mGy-cm. COMPARISON: 11/10/2016 Findings: Scans through the lung bases are unremarkable. Stable endovascular coils in the liver. The liver, spleen, adrenals and kidneys are otherwise within normal limits. There is marked fatty atrophy versus absence of the pancreatic body and tail. Layering gallbladder sludge present. No evidence of aortic aneurysm. No lymphadenopathy. No bowel obstruction or bowel wall thickening. There is no evidence to suggest acute appendicitis. Images through the pelvis were performed. Urinary bladder unremarkable. Status post hysterectomy. No pelvic mass seen. No ascites. Impression: No acute abnormalities seen. Gallbladder sludge. Reviewed, dictated and finalized at [facility]. Impression: No acute abnormalities seen. Gallbladder sludge.
--- OUTSIDE RECORDS SUMMARY | 2024-10-02 19:00 | XMS_ITS | Encounter Summary ---
Author Organization [facility] Address [address] [place] [address] Phone Care Team Providers Care Pantry Attendant Name Role Phone No, Physician Primary Care Provider No, Physician Primary Care Provider Chicho Chapa MD Primary Care Provider [phone] No, Physician Primary Care Provider Chicho Chapa MD Primary Care Provider [phone] No, Physician Primary Care Provider Chicho Chapa MD Primary Care Provider [phone] No, Physician Primary Care Provider Chicho Chapa [...] Hernandez MD PhD Primary Care Provider [phone] Unknown, Notinfile Primary Care Provider Unavail able Kian Hernandez MD PhD Primary Care Provider + [phone] Nicolás Gonzalez MD Unavailable [phone] Patel Garcia MD Unavailable Ayanna Nuñez MD Primary Care Provid er No, Physician Primary Care Provider [phone] Roshan Munson MD Unavailable [phone] Jose Cruz Ramirez MD Primary Care Provider [phone] Encounter Details Date Type Department Care Team [...] on file 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 Gender Identity Female 11/27/2019 1:21 PM CDT Sexual Orientation Straight 11/27/2019 1: 21 PM CDT documented as of this encounter Plan of Treatment Not on file documented as of this encounter Procedures Procedure Name Priority Date/Time Associated Diagnosis Comments VASCULAR LABORATORY REPORT 07/17/2017 6:59 PM LIGHTNING ROD ERECTOR documented in this encounter Results * VASCULAR LABORATORY REPORT (07/17/2017 6:59 PM LIGHTNING ROD ERECTOR) Anatomical Region Laterality Modality Ultrasound us Provider [...] documented as of this encounter Care Teams Pantry Attendant Relationship Specialty Start Date End Date No, Physician PCP - General 07/17/17 07/17/17 No, Physician PCP - General 07/18/17 07/18/17 Chicho Chapa MD [address] [place] [address] PCP - General 07/19/17 07/22/17 No, Physician PCP - General 07/23/17 07/23/17 Chicho Chapa MD [address] [place] [address] PCP - General 07/24/17 07/24/17 No, Physician PCP - General 07/25/17 07/25/17 Chicho Chapa MD [address] [place] [address] PCP - General 07/26/17 07/26/17 No, Physician PCP - General 07/27/17 07/30/17 Chicho Chapa MD [address] [place] [address] PCP - General 07/31/17 08/07/17 No, Physician PCP - General 08/08/17 09/09/17 Gilberto Newman [address] [place] [address] PCP - General 09/10/17 09/10/17 No, Physician PCP - General 09/11/17 09/16/17 Gilberto Newman [address] [place] [address] PCP - General 09/17/17 11/02/17 No, Physician PCP - General 11/03/17 11/06/17 Gilberto Newman [address] [place] [address] PCP - General 11/07/17 11/11/17 No, Physician PCP - General 11/12/17 11/12/17 Gilberto Newman [address] [place] [address] PCP - General 11/13/17 06/29/19 Kian Hernandez MD PhD [address] [facility] [address] [place] [address] PCP - General Internal Medicine 06/30/19 09/08/19 Unknown, Notinfile PCP - General 09/09/19 09/11/19 Kian Hernandez MD PhD PCP - General Internal Medicine 09/12/19 12/31/20 Ayanna Nuñez MD PCP - General 01/01/21 01/10/21 No, Physician PCP - General 01/11/21 09/25/24 Jose Cruz Ramirez MD [address] [place] [address] PCP - General Emergency Medicine 09/26/24 No, Physician 11/07/17 11/11/17 Gilberto Newman 11/12/17 09/14/19 Nicolás Gonzalez MD Consulting Physician Cardiology 09/15/19 Patel Garcia MD Surgeon Cardiothoracic Surgery 11/12/19 01/13/21 Roshan Munson MD Surgeon Vascular Surgery 02/18/21 documented as of this encounter
--- OUTSIDE RECORDS SUMMARY | 2024-10-02 19:00 | XMS_ITS | Continuity of Care Document ---
Author Organization [facility] Address [address] [place] [address] Phone Care Team Providers Care Slot Machine Repairer Name Role Phone Bennie Holt PT Unavailable Unavailable Procedures Procedure Date Therapeutic Activities Neuromuscular Re-Ed Therapeutic Exercise Manual Therapy PT Evaluation Moderate Complexity Therapeutic Activities Neuromuscular Re-Ed Therapeutic Exercise Manual Therapy Advance Directives Directive Yes / No Effective Date File Name No Information Encounters Encounter Description Practice Location Reason(s) For Visit Diagnoses Date Provider Providers Copied on Encounter [facility], [id number], tel:[phone] [place] No Information 3 Jonathon Childress . [facility], [id number], tel:[phone] [facility] No Information 3 Jonathon Childress . Referring Provider: Access Direct. [facility] [address], [id number], tel:[phone] [place] No Information 3 Francia Paredes. [address], [address], [place], [address], [place]. tel: [phone] Referring Provider: Access Direct. Family History Family Member Type Diagnosis Age At Onset No Information Payers Payer name Insurance type Covered democrat ID Authordomoniquemichael jorgensen(s) [facility] [id number] Social History Type Description Quantity Date Captured Comments Sex Female Smoking Status No Information Chief Complaint And Reason For Visit No Information Reason For Referral Reason For Referral No Information History Of Present Illness Encounter Date Complaint History Of Prese nt Illness No Information Functional Status Date Functional Assessmen t No Information Instructions Date Instruction Additional Infor christy Dietary needs education Related to Overweight Prescribed activity/exercise edu cation Related to Overweight Assessments Type Assessment Date No Information Patient Care Teams Name Effective Dates (start - stop) Status Members No Information
--- OUTSIDE RECORDS SUMMARY | 2024-10-02 19:00 | XMS_ITS | Encounter Summary ---
Author Organization [facility] Address [address] [place] [address] Phone Care Team Providers Care Claim Technician Name Role Phone Gilberto Newman Primary Care Provider Unavail able Gilberto Newman Unavailable Unavailable Kian Hernandez MD PhD Primary Care Provider [phone] Unknown, Notinfile Primary Care Provider Unavail able Kian Hernandez MD PhD Primary Care Provider [phone] Nicolás Gonzalez MD Unavailable [phone] Patel Garcia MD Unavailable Ayanna Nuñez MD Primary Care Provid er No, Physician Primary Care Provider Roshan Munson MD Unavailable [phone] Jose Cruz Ramirez MD Primary Care Provider Encounter Details Date Type Department Care Team (Late st Contact Info) Description 02/12/2018 Telephone [facility] Cardiology [address] Advanced Medicine 8th [place] [address] [place] [address] Nicolás Gonzalez MD [address] [facility] [address] [place] [address] Social History Tobacco Use Types Packs/Day Years Used Date Smoking Tobacco: Never Alcohol Use Standard Drinks/Week Comments No 0 (1 standard drink = 0.6 oz pur e alcohol) Comments Unknown Sex and Gender Information Value Date Recorded Sex Assigned at Not on file 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 Gender Identity Female 11/27/2019 1:21 PM CDT [...] documented as of this encounter Care Teams Claim Technician Relationship Specialty Start Date End Date Gilberto Newman PCP - General 11/13/17 06/29/19 Kian Hernandez MD PhD [address] [facility] [address], [place] [address] PCP - General Internal Medicine 06/30/19 09/08/19 Unknown, Notinfile PCP - General 09/09/19 09/11/19 Kian Hernandez MD PhD PCP - General Internal Medicine 09/12/19 12/31/20 Ayanna Nuñez MD PCP - General 01/01/21 01/10/21 No, Physician PCP - General 01/11/21 09/25/24 Jose Cruz Ramirez MD [address] [place] [address] PCP - General Emergency Medicine 09/26/24 Gilberto Newman 11/12/17 09/14/19 Nicolás Gonzalez MD Consulting Physician Cardiology 09/15/19 Patel Garcia MD Surgeon Cardiothoracic Surgery 11/12/19 01/13/21 Roshan Munson MD Surgeon Vascular Surgery 02/18/21 documented as of this encounter
--- OUTSIDE RECORDS SUMMARY | 2024-10-02 19:00 | XMS_ITS | Clinical Summary ---
Author Organization [facility] Address [address] [facility] [place] [address] Care Team Providers Care Residential Remodeling Subcontractor Name Role Phone Unavailable Primary Care Provider Unavailabl e Source Comments [facility],non-owned Affiliates and Associated Physician Practices is amultiple site organization consisting of ambulatory clinics and hospital sitesin [place], [place], [place] and [place]. This disclosure is being madepursuant to the Care Everywhere program and may not contain all information available regarding this patient. Last updated 18.[facility] Allergies Active Allergy Reactions Criticality Noted Date [...] complete this topic MENINGOCOCCAL (Group B) VACCINE SHARED DECISION-MAKING Aged Out No longer eligible based on patient's age to complete this topic MENINGOCOCCAL GROUPS A/C/Y/W VACCINE Aged Out No longer eligible based on patient's age to complete this topic PNEUMOCOCCAL VACCINE Aged Out No long er eligible based on patient's age to complete this topic Gladys Oscar Personal/Famil y Self 1965 [address] [place] [address]
--- OUTSIDE RECORDS SUMMARY | 2024-10-02 19:00 | XMS_ITS | Encounter Summary ---
Author Organization [facility] Address [address] [place] [address] Phone Care Team Providers Care Balance Screwhead Polisher Name Role Phone Torin Prince MD Primary Care Provider [phone] Torin Prince MD Primary Care Provider No, Physician Primary Care Provider Chicho Chapa MD Primary Care Provider [phone] No, Physician Primary Care Provider Soniya, Physician Primary Care Provider Chicho Chapa MD Primary Care Provider [phone] No, Physician Primary Care Provider Chicho Chapa MD Primary Care Provider [phone] No, Physician Primary Care Provider Chicho Chapa MD Primary Care Provider [phone] No, Physician Primary Care Provider Chicho Chapa MD Primary Care Provider [phone] No, Physician Primary Care Provider Gilberto Newman Primary Care Provider Unavail able No, Physician Primary Care Provider Gilberto Newman Primary Care Provider Unavail able No, Physician Primary Care Provider [phone] TrentJulissay Primary Care Provider Unavail able No, Physician Primary Care Provider [phone] Gilberto Newman Primary Care Provider Unavail able No, Physician Unavailable Julissa Newmany Unavailable Unavailable Kian Hernandez MD PhD Primary Care Provider [phone] Unknown, Notinfile Primary Care Provider Unavail able Kian Hernandez MD PhD Primary Care Provider Nicolás Gonzalez MD Unavailable Patel Garcia MD Unavailable Ayanna Nuñez MD Primary Care Provid er No, Physician Primary Care Provider [phone] Roshan Munson MD Unavailable [phone] Jose Cruz Ramirez MD Primary Care Provider [phone] Encounter Details Date Type Department Care Team (Latest Contact Info) Description 06/28/2012 Orders Only [facility] Scanning, Provider Social History Tobacco Use Types Packs/Day Years Used Date Smoking Tobacco: Never Assessed Comments Unknown Sex and Gender Information Value Date Recorded Sex Assigned at Not on file 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 Gender Identity Female 11/27/2019 1:21 PM CDT [...] documented as of this encounter Care Teams Balance Screwhead Polisher Relationship Specialty Start Date End Date Torin Prince MD [address] [place] [address] PCP - General 05/12/09 09/24/13 Torin Prince MD [address] [place] [address] PCP - General 09/25/13 07/13/17 No, Physician PCP - General 07/14/17 07/15/17 Chicho Chapa MD [address] [place] [address] PCP - General 07/16/17 07/16/17 No, Physician PCP - General 07/17/17 07/17/17 No, Physician PCP - General 07/18/17 07/18/17 Chicho Chapa MD [address] [place] [address] PCP - General 07/19/17 07/22/17 No, Physician PCP - General 07/23/17 07/23/17 Chicho Chapa MD [address] [place] [address] PCP - General 07/24/17 07/24/17 No, Physician PCP - General 07/25/17 07/25/17 Chicho Chapa MD [address] [place] [address] PCP - General 07/26/17 07/26/17 No, Physician PCP - General 07/27/17 07/30/17 Chicho Chapa MD [address] [place] [address] PCP - General 07/31/17 08/07/17 No, Physician PCP - General 08/08/17 09/09/17 Gilberto Newman [address] [place] [address] PCP - General 09/10/17 09/10/17 No, Physician PCP - General 09/11/17 09/16/17 Gilberto Newman [address] [place] [address] PCP - General 09/17/17 11/02/17 No, Physician PCP - General 11/03/17 11/06/17 Gilberto Newman [address] [place] [address] PCP - General 11/07/17 11/11/17 No, Physician PCP - General 11/12/17 11/12/17 Gilberto Newman [address] [place] [address] PCP - General 11/13/17 06/29/19 Kian Hernandez MD PhD [address] [facility] [address] [place] [address] PCP - General Internal Medicine 06/30/19 09/08/19 Unknown, Notinfile PCP - General 09/09/19 09/11/19 Kian Hernandez MD PhD PCP - General Internal Medicine 09/12/19 12/31/20 Ayanna Nuñez MD PCP - General 01/01/21 01/10/21 No, Physician PCP - General 01/11/21 09/25/24 Jose Cruz Ramirez MD [address] [place] [address] PCP - General Emergency Medicine 09/26/24 No, Physician 11/07/17 11/11/17 Gilberto Newman 11/12/17 09/14/19 Nicolás Gonzalez MD Consulting Physician Cardiology 09/15/19 Patel Garcia MD Surgeon Cardiothoracic Surgery 11/12/19 01/13/21 Roshan Munson MD Surgeon Vascular Surgery 02/18/21 documented as of this encounter
--- OUTSIDE RECORDS SUMMARY | 2024-10-02 19:01 | XMS_ITS | Referral Summary ---
Author Organization [facility] Address [address] [place] [address] Care Team Providers Care Maintenance Services Dispatcher Name Role Phone Nicolás Gonzalez MD Unavailable Roshan Munson MD Unavailable [phone] Jose Cruz Ramirez MD Primary Care Provider [phone] Encounters Date Type Department Care Team Description 09/26/2024 10:30 AM CDT Office Visit [facility] Vascular Surgery [facility] Medical Office Building [address] [place] [phone] Xiomara Cooper NP Hepatic artery aneurysm (Primary Dx); Aftercare following surgery of the circulatory system 09/26/2024 9:04 AM CDT - 09/26/2024 11:59 PM CDT Hospital Encounter [facility] [address] [place] [address] Aftercare following surgery of the circulatory system; Hepatic artery aneurysm Discharge Disposition: Discharge to home or self care from Last 3 Months Allergies Active Allergy [...] up to 10 days 10 tablet 4 09/27/19 Discontinu ed(Patient Reported) diphenhydrAMINE 25 mg capsule Take 1 tablet/capsul e (25 mg total) by mouth every 6 (six) hours as needed for itching 20 capsule 4 09/27/19 25 Discontinu ed(Patient Reported) Active Problems Problem Noted Date Diagnosed Date [...] ICU for initial recovery, transferred out to [facility] 02/13 PM - NGT discontinued 02/13 - + BM 02/16 - Advance to regular - ASA daily - PT, OT evaluate and treat - DC pa - Epidural dc'd by Pain Service 02/17 - DC CHAIRPERSON ANESTHESIOLOGY, start PO oxy Assessment & Plan (12/20/2020 [...] counseling 03/26/2018 Overview (03/27/2018): Pt traveling to [facility] for mission work in [place] for 10 days in June 2018. 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 Not on file Not on file Not on file Last Filed Vital Signs Vital Sign Reading Time Taken Comments Blood Pressure 149/90 09/26/2024 10:14 AM CDT Pulse 67 09/26/2024 10:14 AM CDT Temperature 36.9 C (98.5 F) 05/27/2024 2:38 PM CARDIOVASCULAR SPECIALIST Respiratory Rate 16 05/13/2024 5:10 AM CDT Oxygen Saturation 99% 09/26/2024 10:14 AM CDT Inhaled Oxygen Concentration - - Weight 77.2 kg (170 lb 3.2 oz) 09/26/2024 10:14 AM CDT Height 165.1 cm (5' 5 ) 09/26/2024 10:14 AM CDT Body Mass Index 28.32 09/26/2024 10:14 AM CDT Plan of Treatment Not on file Goals Goal Patient Goal Type Associated Problems Recent Progress Patient-Stated? Author Drink more water Diet Improving(10/2019 11:31 AM CDT) No Timothy Man RN Medical Devices Implanted Type Area Strand Buncher Fine Wire Device Identifier Shelf Expiration Date Model / Serial / Lot [id number] [id number] Hemashield Belsano 30mm 30cm Woven Smooth Needle Passage Suture - [id number] - [id number] Implanted:Qty: 1 on 11/07/2019 by Jessie Henry MD at [facility] Graft N/A: Heart [employer] 05/15/2024 [id number] / [id number] [employer] [id number] Angio-Seal Evolution 6fr .035in Guidewire Bypass Tube Suture - [id number] Implanted:Qty: 1 on 11/06/2019 by Hiro Soto MD at [facility] Other - see comments Left: Arterial [employer] [id number] / / Description:6F Angio-Seal Ev olution Procedures Procedure Name Priority Date/Time Associated Diagnosis Comments POC ISTAT Routine 09/26/2024 9:13 AM CDT CTA ABDOMEN PELVIS W WO CONTRAST Schedule Routine, Read Routine (OP Routine) 09/26/2024 9:06 AM CDT Aftercare following surgery of the circulatory system Hepatic artery aneurysm from Last 3 Months Results * POC ISTAT (09/26/2024 9:13 AM CDT) Creatinine, POC, bld 0.7 0.6 - 1.3 mg/dL POC Device Number [id number] [facility] POC Performer [id number] [facility] Blood 09/26/2024 9:13 AM CDT 09/26/2024 9:13 AM CDT us Xiomara Cooper NP LAB BLOOD ORDERABLES Final Res ult [facility] [address] [facility]. [place] [address] * CTA Abdomen Pelvis (09/26/2024 9:06 AM CDT) Anatomical Region Laterality Modality Body N/A Computed Tomogra phy 09/26/2024 10:1 0 AM CDT Impressions 09/26/2024 10:10 AM CDT 1. 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 2. 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 3. Stable coil embolization within the right hemiliver with associated atrophy. Electronically signed by: Lex Rain M.D. Narrative 09/26/2024 10:10 AM CDT EXAMINATION: CT ANGIOGRAPHY OF THE ABDOMEN AND PELVIS WITH AND WITHOUT CONTRAST HISTORY: Celiac axis aneurysm. TECHNIQUE: CT angiography of the abdomen and pelvis was performed prior to and following the uneventful intravenous administration of 89 ml Optiray-350 using the abdomen and pelvis angiography protocol. Vascular 3D images were generated on a dedicated workstation and also interpreted. COMPARISON: 11/10/2023 FINDINGS: VASCULAR FINDINGS: Again seen is aneurysmal dilatation of the celiac trunk measuring 1.4 cm on series 5 image 133. 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 A dominant accessory left hepatic artery arises from the left gastric artery. There is central filling of the middle and right hepatic arteries, but these are diminutive in size. Normal caliber abdominal aorta. Normal origins of the superior mesenteric, inferior mesenteric, and renal arteries. Normal caliber iliac and proximal femoral vessels. NONVASCULAR FINDINGS: Partially imaged changes of median sternotomy. Mild cardiomegaly. Clear lung bases. Changes from coil embolization noted within the right liver with associated atrophy. No suspicious liver lesion or biliary duct dilatation. Cholelithiasis noted without cholecystitis. Normal-appearing adrenal glands, pancreas, and spleen. Nondistended stomach and duodenum. No hydronephrosis within the kidneys. No abdominal or pelvic lymphadenopathy. Surgically absent uterus. Decompressed bladder. No free intraperitoneal fluid or free gas. No intestinal obstruction or focal bowel wall thickening. No peritoneal or omental nodularity. Normal appendix. Bone windows demonstrate no suspicious osseous lesion or fracture. Procedure Note Lex Rain MD - 09/26/2024 EXAMINATION: CT ANGIOGRAPHY OF THE ABDOMEN AND PELVIS WITH AND WITHOUT CONTRAST HISTORY: Celiac axis aneurysm. TECHNIQUE: CT angiography of the abdomen and pelvis was performed prior to and following the uneventful intravenous administration of 89 ml Optiray-350 using the abdomen and pelvis angiography protocol. Vascular 3D images were generated on a dedicated workstation and also interpreted. COMPARISON: 11/10/2023 FINDINGS: VASCULAR FINDINGS: Again seen is aneurysmal dilatation of the celiac trunk measuring 1.4 cm on series 5 image 133. 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 A dominant accessory left hepatic artery arises from the left gastric artery. There is central filling of the middle and right hepatic arteries, but these are diminutive in size. Normal caliber abdominal aorta. Normal origins of the superior mesenteric, inferior mesenteric, and renal arteries. Normal caliber iliac and proximal femoral vessels. NONVASCULAR FINDINGS: Partially imaged changes of median sternotomy. Mild cardiomegaly. Clear lung bases. Changes from coil embolization noted within the right liver with associated atrophy. No suspicious liver lesion or biliary duct dilatation. Cholelithiasis noted without cholecystitis. Normal-appearing adrenal glands, pancreas, and spleen. Nondistended stomach and duodenum. No hydronephrosis within the kidneys. No abdominal or pelvic lymphadenopathy. Surgically absent uterus. Decompressed bladder. No free intraperitoneal fluid or free gas. No intestinal obstruction or focal bowel wall thickening. No peritoneal or omental nodularity. Normal appendix. Bone windows demonstrate no suspicious osseous lesion or fracture. IMPRESSION: 1. 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 2. 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 3. Stable coil embolization within the right hemiliver with associated atrophy. Electronically signed by: Lex Rain M.D. Xiomara Cooper NP IMG CT PROCEDURES Final Result from Last 3 Months Insurance CHOICE [facility] [place] Advance Directives For more information, please contact: [phone] * Full Code (Latest Code Status on [...] 2:43 PM 11/06/2019 2:43 PM Care Teams Maintenance Services Dispatcher Relationship Specialty Start Date End Date Jose Cruz Ramirez MD [address] [place] [address] PCP - General Emergency Medicine 09/26/24 Nicolás Gonzalez MD Consulting Physician Cardiology 09/15/19 Roshan Munson MD Surgeon Vascular Surgery 02/18/21
--- OUTSIDE RECORDS SUMMARY | 2024-10-02 19:01 | XMS_ITS | Clinical Summary ---
Author Organization [facility] Healthcare Address [address] [place] [address] Care Team Providers Care Web Services Architect Name Role Phone Nicolás Gonzalez MD Unavailable [phone] Roshan Munson MD Unavailable [phone] Jose Cruz Ramirez MD Primary Care Provider [phone] Allergies Active Allergy Reactions Criticality Noted Date [...] needed for itching 20 capsule 4 09/27/19 Discontinu ed(Patient Reported) Active Problems Problem Noted [...] ICU for initial recovery, transferred out to [facility] 8 PM - NGT discontinued 02/13 - + BM 02/16 - Advance to regular - ASA daily - PT, OT evaluate and treat - DC pa - Epidural dc'd by Pain Service 02/17 - DC TUBE COATER, start PO oxy Assessment & Plan (12/20/2020 [...] counseling 03/26/2018 Overview (03/27/2018): Pt traveling to [facility] in [employer] for 10 days in June 2018. Reviewed [facility] website with pt including meds/vaccines/mosquito bite prevention/and [...] Description 09/26/2024 10:30 AM CDT Office Visit [facility] Vascular Surgery [address] [place] [address] Medical Office Building [address] [place] [address] Xiomara Cooper NP Hepatic artery aneurysm (Primary Dx); Aftercare following surgery of the circulatory system 09/26/2024 9:04 AM CDT - 09/26/2024 11:59 PM CDT Hospital Encounter [facility] [address] [place] [address] Aftercare following surgery of the circulatory system; Hepatic artery aneurysm Discharge Disposition: Discharge to home or self care from Last 3 Months Immunizations Immunization Administration [...] Medical History Date Comments Hypertension Atrial fibrillation (HCC) VT (ventricular tachycardia) (HCC) Heart palpitations PVCs (premature ventricular contractions) 8 Chronic back pain 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 Thoracic aortic aneurysm without rupture 020 Hepatic artery aneurysm 06/15/2020 Delayed emergence from general anesthesia COVID-19 virus [...] on file Legal Sex Female 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 Gender Identity Female 11/27/2019 1:21 PM CDT Sexual Orientation Straight 11/27/2019 1: 21 PM CDT 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 Not on file Not on file Not on file Obstetrics History Last Filed Vital Signs Vital Sign Reading Time Taken Comments Blood Pressure 149/90 09/26/2024 10:14 AM CDT Pulse 67 09/26/2024 10:14 AM CDT Temperature 36.9 C (98.5 F) 05/27/2024 2:38 PM IN STORE BANKER Respiratory Rate 16 05/13/2024 5:10 AM CDT Oxygen Saturation 99% 09/26/2024 10:14 AM CDT Inhaled Oxygen Concentration - - Weight 77.2 kg (170 lb 3.2 oz) 09/26/2024 10:14 AM CDT Height 165.1 cm (5' 5 ) 09/26/2024 10:14 AM CDT Body Mass Index 28.32 09/26/2024 10:14 AM CDT Plan of Treatment Health Maintenance Due Date Last Done Comments Breast Cancer Screening-Mammogram 1965 Colon Cancer Screening-Colonoscopy 1965 Depression Screening 1965 Hepatitis C Screening 1965 DTaP/Tdap/Td Vaccine (1 - Tdap) 12/13/1978 Hepatitis B Screening 12/13/1985 Regular Well Visit/Exam 18-64 12/13/1985 Zoster Vaccine (1 of 2) 12/13/2017 Covid-19 Vaccine (3 - 2023-2 5 season) 2024 09/18/2020, 08/26/2020 Influenza Vaccine (#1) 2024 8, 07/26/2017, 07/04/2012 Pneumococcal vaccine <65 Aged Out No longer eligible based on patient's age to complete this topic Goals Goal Patient Goal Type Associated Problems Recent Progress Patient-Stated? Author Drink more water Diet Improving(10/2019 11:31 AM CDT) No Timothy Man, [employer] Implanted Type Area Bus Greaser Device Identifier Shelf Expiration Date Model / Serial / Lot Wyle [id number] Hemashield [place] 30mm 30cm Woven Smooth Needle Passage Suture - [id number] - [id number] Implanted:Qty: 1 on 11/07/2019 by Jessie Henry MD at [facility] Graft N/A: Heart [employer] 05/15/2024 [id number] / [id number] [employer] [id number] Angio-Seal Evolution 6fr .035in Guidewire Bypass Tube Suture - [id number] Implanted:Qty: 1 on 11/06/2019 by Hiro Soto MD at [facility] Other - see comments Left: Arterial [employer] [id number] / / Description:6F Angio-Seal Ev olution Procedures [...] 0.6 - 1.3 mg/dL POC Device Number [id number] [facility] POC Performer [id number] [facility] Blood 09/26/2024 9:13 AM CDT 09/26/2024 9:13 AM CDT us Xiomara Cooper NP LAB BLOOD ORDERABLES Final Res ult [facility] [id number] [facility]. [place] [address] * CTA Abdomen Pelvis (09/26/2024 [...] Result from Last 3 Months Insurance [place] Advance Directives For more information, please contact: [phone] * Full Code (Latest Code Status on [...] 2:43 PM 11/06/2019 2:43 PM Care Teams Web Services Architect Relationship Specialty Start Date End Date Jose Cruz Ramirez MD [address] [place] [address] PCP - General Emergency Medicine 09/26/24 Nicolás Gonzalez MD Consulting Physician Cardiology 09/15/19 Roshan Munson MD Surgeon Vascular Surgery 02/18/21
--- OUTSIDE RECORDS SUMMARY | 2024-10-02 19:01 | XMS_ITS | Clinical Summary ---
Author Organization [facility] Address [address] [place] [address] Care Team Providers Care Data Assistant Name Role Phone None, Provider MD Primary [...] Comments Blood Pressure 138/88 09/04/2023 11:39 PM CLIENT RELATIONSHIP EXECUTIVE Pulse 61 09/04/2023 11:39 PM CLIENT RELATIONSHIP EXECUTIVE Temperature 36.6 C (97.9 F) 09/04/2023 9:11 PM CLIENT RELATIONSHIP EXECUTIVE Respiratory Rate 18 09/04/2023 11:39 PM CLIENT RELATIONSHIP EXECUTIVE Oxygen Saturation 100% 09/04/2023 11:39 PM CLIENT RELATIONSHIP EXECUTIVE Inhaled Oxygen Concentration - - Weight 75.8 kg (167 lb) 09/04/2023 9:11 PM CLIENT RELATIONSHIP EXECUTIVE Height 165.1 cm (5' 5 ) 09/04/2023 9:11 PM CLIENT RELATIONSHIP EXECUTIVE Body Mass Index 27.79 09/04/2023 9:11 PM CLIENT RELATIONSHIP EXECUTIVE Plan of Treatment Health Maintenance Due Date [...] patient's age to complete this topic Insurance [facility] Care Teams Data Assistant Relationship Specialty Start Date End Date None, Provider, PCP - General UNKNOWN PHYSICIAN SPECIALTY 09/04/23
[2024-10-02 19:46] VITALS: BP 144/94; PULSE 74; RESP 15; TEMP 36.3; O2SAT 98
[2024-10-02 22:34] LABS: Add Urine Microscopic? YES; Appearance Urine Clear (Clear); Bilirubin Urine Negative (Negative); Blood Urine Negative (Negative); Color Urine Yellow (Yellow); Glucose Urine UA Negative (Negative); Ketones Urine Negative (Negative); Leukocyte Esterase Ur 1+ LEU/UL (Negative); Nitrate Urine Negative (Negative); Protein Urine Negative (Negative); Specific Grav Ur 1.017 (1.001-1.035); pH Urine 5.5 (5.0-9.0)
[2024-10-02 22:55] LABS: Bacteria Urine 4+ /hpf; Mucus Urine Present /lpf; Squamous Epithelial Cell Urine Rare /hpf (Few); WBC Urine 16-20 /hpf (0-3)
[2024-10-03] VITALS: BP 144/86; PULSE 56; RESP 15; O2SAT 98
[2024-10-03 00:05] LABS: Basophils Percent Auto 0.4 % (0.2-1.2); Eosinophils Absolute Auto 0.1 K/mm3 (0-0.3); Hemoglobin 13.3 g/dL (12.0-15.0); Immature Granulocyte Absolute 0.03 K/mm3 (0.00-0.031); Immature Granulocyte Percent A 0.4 % (0-0.5); Lymphocytes Absolute Auto 2.68 K/mm3 (0.9-3.2); Lymphocytes Percent Auto 37.4 % (18.3-44.2); Mean Corpuscular HGB Conc 34.1 g/dl (32-36); Mean Corpuscular Hemoglobin 30.1 pg (26-34); Mean Corpuscular Volume 88.2 fl (80-100); Mean Platelet Volume 7.6 fl (7.4-10.4); Monocytes Absolute Auto 0.6 K/mm3 (0.1-0.6); Monocytes Percent Auto 8.5 % (2.6-8.5); Neutrophils Absolute Auto 3.7 K/mm3 (1.3-6.7); Neutrophils Percent Auto 52.3 % (45.5-73.1); Platelet Count Result 183 k/mm3 (150-375); Red Blood Count 4.42 M/mm3 (4.2-5.4); Red Cell Distribution Width 12.9 % (11.5-14.5); White Blood Count 7.2 K/mm3 (4.5-10.0)
[2024-10-03 00:17] LABS: Alanine Aminotransferase 45 U/L (6-35); Albumin Level 4.3 g/dL (3.5-5.1); Alkaline Phosphatase 98 U/L (38-126); Anion Gap 7 mmol/L (4-12); Aspartate Amino Transferase 32 U/L (14-36); Bilirubin,Total 0.8 mg/dL (0.2-1.3); Blood Urea Nitrogen 19 mg/dL (7-17); Calcium 9.4 mg/dL (8.4-10.2); Carbon Dioxide 24 mmol/L (22-30); Chloride 105 mmol/L (98-107); Estimated CRCL calculation 71 ml/min; Estimated Glomerular Filt Rate > 60; Glucose 95 mg/dL (65-110); Potassium 4.2 mmol/L (3.4-5.0); Sodium 136 mmol/L (137-145)
--- OUTSIDE RECORDS SUMMARY | 2024-10-03 00:32 | XMS_ITS | Encounter Summary ---
Author Organization [facility] Address [address] [place] [address] Phone Care Team Providers Care Director Of Physical Security Name Role Phone Gilberto Newman Primary Care Provider Unavail able Gilberto Newman Unavailable Unavailable Kian Hernandez MD PhD Primary Care Provider [phone] Unknown, Notinfile Primary Care Provider Unavail able Kian Hernandez MD PhD Primary Care Provider [phone] Nicolás Gonzalez MD Unavailable [phone] Patel Garcia MD Unavailable Ayanna Nuñez MD Primary Care Provid er No, Physician Primary Care Provider [phone] Roshan Munson MD Unavailable [phone] Jose Cruz Ramirez MD Primary Care Provider Encounter Details Date Type Department Care Team (Late st Contact Info) Description 02/12/2018 Telephone [facility] Cardiology [address] [facility] 8th [place] [address] [place] [address] Nicolás Gonzalez MD [address] [facility] [address] [place] [address] Social History Tobacco Use Types Packs/Day Years Used Date Smoking Tobacco: Never Alcohol Use Standard Drinks/Week Comments No 0 (1 standard drink = 0.6 oz pur e alcohol) Comments Unknown Sex and Gender Information Value Date Recorded Sex Assigned at Not on file 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 Gender Identity Female 11/27/2019 1:21 PM CDT [...] documented as of this encounter Care Teams Director Of Physical Security Relationship Specialty Start Date End Date Gilberto Newman PCP - General 11/13/17 06/29/19 Kian Hernandez MD PhD [address] [facility] [address], [place] [address] PCP - General Internal Medicine 06/30/19 09/08/19 Unknown, Notinfile PCP - General 09/09/19 09/11/19 Kian Hernandez MD PhD PCP - General Internal Medicine 09/12/19 12/31/20 Ayanna Nuñez MD PCP - General 01/01/21 01/10/21 No, Physician PCP - General 01/11/21 09/25/24 Jose Cruz Ramirez MD [address] [place] [address] PCP - General Emergency Medicine 09/26/24 Gilberto Newman 11/12/17 09/14/19 Nicolás Gonzalez MD Consulting Physician Cardiology 09/15/19 Patel Garcia MD Surgeon Cardiothoracic Surgery 11/12/19 01/13/21 Roshan Munson MD Surgeon Vascular Surgery 02/18/21 documented as of this encounter
--- OUTSIDE RECORDS SUMMARY | 2024-10-03 00:32 | XMS_ITS | Encounter Summary ---
Author Organization [facility] Address [address] [place] [address] Phone Care Team Providers Care Ict Trainer Name Role Phone No, Physician Primary Care Provider No, Physician Primary Care Provider Chicho Chapa MD Primary Care Provider [phone] No, Physician Primary Care Provider Chicho Chapa MD Primary Care Provider [phone] No, Physician Primary Care Provider Chicho Chapa MD Primary Care Provider [phone] No, Physician Primary Care Provider Chicho Chapa [...] Hernandez MD PhD Primary Care Provider [phone] Unknown, Notinfile Primary Care Provider Unavail able Kian Hernandez MD PhD Primary Care Provider [phone] Nicolás Gonzalez MD Unavailable [phone] Patel Garcia MD Unavailable Ayanna Nuñez MD Primary Care Provid er No, Physician Primary Care Provider [phone] Roshan Munson MD Unavailable [phone] Jose Cruz Ramirez MD Primary Care Provider [phone] Encounter Details Date Type Department Care Team [...] on file Legal Sex Female 1:11 AM INVESTIGATIVE ASSISTANT Gender Identity Female 11/27/2019 1:21 PM CDT Sexual Orientation Straight 11/27/2019 1: 21 PM CDT documented as of this encounter Plan of Treatment Not on file documented as of this encounter Procedures Procedure Name Priority Date/Time Associated Diagnosis Comments VASCULAR LABORATORY REPORT 07/17/2017 6:59 PM INVESTIGATIVE ASSISTANT documented in this encounter Results * VASCULAR LABORATORY REPORT (07/17/2017 6:59 PM INVESTIGATIVE ASSISTANT) Anatomical Region Laterality Modality Ultrasound us Provider [...] documented as of this encounter Care Teams Ict Trainer Relationship Specialty Start Date End Date No, Physician PCP - General 07/17/17 07/17/17 No, Physician PCP - General 07/18/17 07/18/17 Chicho Chapa MD [address] [place] [address] PCP - General 07/19/17 07/22/17 No, Physician PCP - General 07/23/17 07/23/17 Chicho Chapa MD [address] [place] [address] PCP - General 07/24/17 07/24/17 No, Physician PCP - General 07/25/17 07/25/17 Chicho Chapa MD [address] [place] [address] PCP - General 07/26/17 07/26/17 No, Physician PCP - General 07/27/17 07/30/17 Chicho Chapa MD [address] [place] [address] PCP - General 07/31/17 08/07/17 No, Physician PCP - General 08/08/17 09/09/17 Gilberto Newman [address] [place] [address] PCP - General 09/10/17 09/10/17 No, Physician PCP - General 09/11/17 09/16/17 Gilberto Newman [address] [place] [address] PCP - General 09/17/17 11/02/17 No, Physician PCP - General 11/03/17 11/06/17 Gilberto Newman [address] [place] [address] PCP - General 11/07/17 11/11/17 No, Physician PCP - General 11/12/17 11/12/17 Gilberto Newman [address] [place] [address] PCP - General 11/13/17 06/29/19 Kian Hernandez MD PhD [address] [facility] [address] [place] [address] PCP - General Internal Medicine 06/30/19 09/08/19 Unknown, Notinfile PCP - General 09/09/19 09/11/19 Kian Hernandez MD PhD PCP - General Internal Medicine 09/12/19 12/31/20 Ayanna Nuñez MD PCP - General 01/01/21 01/10/21 No, Physician PCP - General 01/11/21 09/25/24 Jose Cruz Ramirez MD [address] [place] [address] PCP - General Emergency Medicine 09/26/24 No, Physician 11/07/17 11/11/17 Gilberto Newman 11/12/17 09/14/19 Nicolás Gonzalez MD Consulting Physician Cardiology 09/15/19 Patel Garcia MD Surgeon Cardiothoracic Surgery 11/12/19 01/13/21 Roshan Munson MD Surgeon Vascular Surgery 02/18/21 documented as of this encounter
--- OUTSIDE RECORDS SUMMARY | 2024-10-03 00:32 | XMS_ITS | Continuity of Care Document ---
Author Organization [facility] Address [address] [facility] [address] [place] [address] Phone Care Team Providers Care Front End Application Developer Name Role Phone Bennie Holt PT Unavailable Unavailable Procedures Procedure Date Therapeutic Activities Neuromuscular Re-Ed Manual Therapy Therapeutic Exercise PT Evaluation Moderate Complexity Therapeutic Activities Neuromuscular Re-Ed Therapeutic Exercise Manual Therapy Advance Directives Directive Yes / No Effective Date File Name No Information Encounters Encounter Description Practice Location Reason(s) For Visit Diagnoses Date Provider Providers Copied on Encounter [facility], [id number], tel:[phone] [place] No Information 3 Jonathon Childress . [facility], [id number], tel:[phone] [facility] No Information 3 Jonathon Childress . Referring Provider: Access Direct. [facility] [address], [id number], tel:[phone] [place] No Information 3 Francia Paredes. [address] [facility], [address], [place], [address], [place]. tel: [phone] Referring Provider: Access Direct. Family History Family Member Type Diagnosis Age At Onset No Information Payers Payer name Insurance type Covered democrat ID Authordomoniquemichael jorgensen(s) [facility] [id number] Social History Type Description Quantity Date Captured [...]
--- OUTSIDE RECORDS SUMMARY | 2024-10-03 00:32 | XMS_ITS | Clinical Summary ---
Author Organization [facility] Address [address] [place] [address] Care Team Providers Care Flower Picker Name Role Phone None, Provider MD Primary [...] Comments Blood Pressure 138/88 09/04/2023 11:39 PM [employer]CHO[employer] YE[employer] Pulse 61 09/04/2023 11:39 PM [employer] YE[employer] Temperature 36.6 C (97.9 F) 09/04/2023 9:11 PM SCHOOL YEAR NANNY Respiratory Rate 18 09/04/2023 11:39 PM SCHOOL YEAR NANNY Oxygen Saturation 100% 09/04/2023 11:39 PM SCHOOL YEAR NANNY Inhaled Oxygen Concentration - - Weight 75.8 kg (167 lb) 09/04/2023 9:11 PM SCHOOL YEAR NANNY Height 165.1 cm (5' 5 ) 09/04/2023 9:11 PM SCHOOL YEAR NANNY Body Mass Index 27.79 09/04/2023 9:11 PM SCHOOL YEAR NANNY Plan of Treatment Health Maintenance Due Date [...] patient's age to complete this topic Insurance [facility] Care Teams Flower Picker Relationship Specialty Start Date End Date None, Provider, PCP - General UNKNOWN PHYSICIAN SPECIALTY 09/04/23
--- OUTSIDE RECORDS SUMMARY | 2024-10-03 00:32 | XMS_ITS | Clinical Summary ---
Author Organization [facility] Address [address] [facility] [place] [address] Care Team Providers Care Supervisor Paste Mixing Name Role Phone Unavailable Primary Care Provider Unavailabl e Source Comments [facility],non-owned Affiliates and Associated Physician Practices is amultiple site organization consisting of ambulatory clinics and hospital sitesin [place], [place], [place] and [place]. This disclosure is being madepursuant to the Care Everywhere program and may not contain all information available regarding this patient. Last updated 18.[facility] Allergies Active Allergy Reactions Criticality Noted Date [...] y Self 1965 [address] [place] [address]
--- OUTSIDE RECORDS SUMMARY | 2024-10-03 00:32 | XMS_ITS | Encounter Summary ---
Author Organization [facility] Address [address] [place] [address] Phone Care Team Providers Care Metal Fabricating Supervisor Name Role Phone Torin Prince MD Primary Care Provider Torin Prince MD Primary Care Provider No, Physician Primary Care Provider Chicho Chapa MD Primary Care Provider [phone] No, Physician Primary Care Provider Soniya, Physician Primary Care Provider Chicho Chapa MD Primary Care Provider [phone] No, Physician Primary Care Provider Chicho Chapa MD Primary Care Provider [phone] No, Physician Primary Care Provider Chicho Chapa MD Primary Care Provider [phone] No, Physician Primary Care Provider Chicho Chapa MD Primary Care Provider [phone] No, Physician Primary Care Provider Gilberto Newman [...] Hernandez MD PhD Primary Care Provider [phone] Unknown, Notinfile Primary Care Provider Unavail able Kian Hernandez MD PhD Primary Care Provider Nicolás Gonzalez MD Unavailable Patel Garcia MD Unavailable Ayanna Nuñez MD Primary Care Provid er No, Physician Primary Care Provider Roshan Munson MD Unavailable [phone] Jose Cruz Ramirez MD Primary Care Provider [phone] Encounter Details Date Type Department Care Team (Latest Contact Info) Description 06/28/2012 Orders Only [facility] Scanning, Provider Social History Tobacco Use Types Packs/Day Years Used Date Smoking Tobacco: Never Assessed Comments Unknown Sex and Gender Information Value Date Recorded Sex Assigned at Not on file 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 Gender Identity Female 11/27/2019 1:21 PM [...] documented as of this encounter Care Teams Metal Fabricating Supervisor Relationship Specialty Start Date End Date Torin Prince MD [address] [place] [address] PCP - General 05/12/09 09/24/13 Torin Prince MD [address] [place] [address] PCP - General 09/25/13 07/13/17 No, Physician PCP - General 07/14/17 07/15/17 Chicho Chapa MD [address] [place] [address] PCP - General 07/16/17 07/16/17 No, Physician PCP - General 07/17/17 07/17/17 No, Physician PCP - General 07/18/17 07/18/17 Chicho Chapa MD [address] [place] [address] PCP - General 07/19/17 07/22/17 No, Physician PCP - General 07/23/17 07/23/17 Chicho Chapa MD [address] [place] [address] PCP - General 07/24/17 07/24/17 No, Physician PCP - General 07/25/17 07/25/17 Chicho Chapa MD [address] [place] [address] PCP - General 07/26/17 07/26/17 No, Physician PCP - General 07/27/17 07/30/17 Chicho Chapa MD [address] [place] [address] PCP - General 07/31/17 08/07/17 No, Physician PCP - General 08/08/17 09/09/17 Gilberto Newman [address] [place] [address] PCP - General 09/10/17 09/10/17 No, Physician PCP - General 09/11/17 09/16/17 Gilberto Newman [address] [place] [address] PCP - General 09/17/17 11/02/17 No, Physician PCP - General 11/03/17 11/06/17 Gilberto Newman [address] [place] [address] PCP - General 11/07/17 11/11/17 No, Physician PCP - General 11/12/17 11/12/17 Gilberto Newman [address] [place] [address] PCP - General 11/13/17 06/29/19 Kian Hernandez MD PhD [address] [facility] [address] [place] [address] PCP - General Internal Medicine 06/30/19 09/08/19 Unknown, Notinfile PCP - General 09/09/19 09/11/19 Kian Hernandez MD PhD PCP - General Internal Medicine 09/12/19 12/31/20 Ayanna Nuñez MD PCP - General 01/01/21 01/10/21 No, Physician PCP - General 01/11/21 09/25/24 Jose Cruz Ramirez MD [address] [place] [address] PCP - General Emergency Medicine 09/26/24 No, Physician 11/07/17 11/11/17 Gilberto Newman 11/12/17 09/14/19 Nicolás Gonzalez MD Consulting Physician Cardiology 09/15/19 Patel Garcia MD Surgeon Cardiothoracic Surgery 11/12/19 01/13/21 Roshan Munson MD Surgeon Vascular Surgery 02/18/21 documented as of this encounter
--- OUTSIDE RECORDS SUMMARY | 2024-10-03 00:33 | XMS_ITS | Clinical Summary ---
Author Organization [facility] Healthcare Address [address] [place] [address] Care Team Providers Care Emission Specialist Name Role Phone Nicolás Gonzalez MD Unavailable Roshan Munson MD Unavailable [phone] Jose Cruz Ramirez MD Primary Care Provider Allergies Active Allergy Reactions Criticality Noted Date [...] ICU for initial recovery, transferred out to [facility] 8 PM - NGT discontinued 02/13 - + BM 02/16 - Advance to regular - ASA daily - PT, OT evaluate and treat - DC pa - Epidural dc'd by Pain Service 02/17 - DC ECHOMETER ENGINEER, start PO oxy Assessment & Plan (12/20/2020 [...] counseling 03/26/2018 Overview (03/27/2018): Pt traveling to [facility] 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 Reviewed [facility] website with pt including meds/vaccines/mosquito bite prevention/and [...] Description 09/26/2024 10:30 AM CDT Office Visit [facility] Vascular Surgery [address] [place] [address] Medical Office Building [address] [place] [phone] Xiomara Cooper NP Hepatic artery aneurysm (Primary Dx); Aftercare following surgery of the circulatory system 09/26/2024 9:04 AM CDT - 09/26/2024 11:59 PM CDT Hospital Encounter 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 Not on file Not on file Obstetrics History Last Filed Vital Signs Vital Sign Reading Time Taken Comments Blood Pressure 149/90 09/26/2024 10:14 AM CDT Pulse 67 09/26/2024 10:14 AM CDT Temperature 36.9 C (98.5 F) 05/27/2024 2:38 PM NEEDLEWORKER Respiratory Rate 16 05/13/2024 5:10 AM CDT [...] Man, BRYCE Medical Devices Implanted Type Area Recruiter Device Identifier Shelf Expiration Date Model / Serial / Lot [employer] [id number] Hemashield [place] 30mm 30cm Woven Smooth Needle Passage Suture - [id number] - [id number] Implanted:Qty: 1 on 11/07/2019 by Jessie Henry MD at [facility] Graft N/A: Heart [employer] 05/15/2024 [id number] / [id number] Daig [employer] [id number] Angio-Seal Evolution 6fr .035in Guidewire Bypass Tube Suture - [id number] Implanted:Qty: 1 on 11/06/2019 by Hiro Soto MD at [facility] Other - see comments Left: Arterial [employer] [id number] / / Description:6F Angio-Seal Ev olution Procedures [...] 0.6 - 1.3 mg/dL POC Device Number [id number] [facility] POC Performer [id number] [facility] Blood 09/26/2024 9:13 AM CDT 09/26/2024 9:13 AM CDT us Xiomara Cooper NP LAB BLOOD ORDERABLES Final Res ult [facility] [address] [facility]. Department [place] [address] * CTA Abdomen Pelvis (09/26/2024 [...] Advance Directives For more information, please contact: [phone] * Full Code (Latest Code Status on [...] 2:43 PM 11/06/2019 2:43 PM Care Teams Emission Specialist Relationship Specialty Start Date End Date Jose Cruz Ramirez MD [address] [place] [id number] PCP - General Emergency Medicine 09/26/24 Nicolás Gonzalez MD Consulting Physician Cardiology 09/15/19 Roshan Munson MD Surgeon Vascular Surgery 02/18/21
--- OUTSIDE RECORDS SUMMARY | 2024-10-03 00:33 | XMS_ITS | Referral Summary ---
Author Organization [facility] Healthcare Address [address] [place] [address] Care Team Providers Care Automobile Mechanic Supervisor Name Role Phone Nicolás Gonzalez MD Unavailable [phone] Roshan Munson MD Unavailable [phone] Jose Cruz Ramirez MD Primary Care Provider [phone] Encounters Date Type Department Care Team Description 09/26/2024 10:30 AM CDT Office Visit [facility] Vascular Surgery [facility] Medical Office Building [address] [place] [phone] Xiomara Cooper NP Hepatic artery aneurysm (Primary Dx); Aftercare following surgery of the circulatory system 09/26/2024 9:04 AM CDT - 09/26/2024 11:59 PM CDT Hospital Encounter [facility] Imaging [address] [address] [place] [address] Aftercare following surgery of the circulatory system; [...] ICU for initial recovery, transferred out to [facility] 02/13 PM - NGT discontinued 02/13 - + BM 02/16 - Advance to regular - ASA daily - PT, OT evaluate and treat - DC pa - Epidural dc'd by Pain Service 02/17 - DC ANIMAL KEEPER HEAD, start PO oxy Assessment & Plan (12/20/2020 [...] counseling 03/26/2018 Overview (03/27/2018): Pt traveling to [facility] for mission work in [place] for 10 days in June 2018. 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 Not on file Not on file Not on file Last Filed Vital Signs Vital Sign Reading Time Taken Comments Blood Pressure 149/90 09/26/2024 10:14 AM CDT Pulse 67 09/26/2024 10:14 AM CDT Temperature 36.9 C (98.5 F) 05/27/2024 2:38 PM FAMILY PROTECTION SPECIALIST Respiratory Rate 16 05/13/2024 5:10 AM [...] Man RN Medical Devices Implanted Type Area Leather Novelty Parts Cutter Device Identifier Shelf Expiration Date Model / Serial / Lot [employer] [id number] Hemashield [place] 30mm 30cm Woven Smooth Needle Passage Suture - [id number] - [id number] Implanted:Qty: 1 on 11/07/2019 by Jessie Henry MD at [facility] Graft N/A: Heart [employer] 05/15/2024 [id number] / [id number] [employer] [id number] Angio-Seal Evolution 6fr .035in Guidewire Bypass Tube Suture - [id number] Implanted:Qty: 1 on 11/06/2019 by Hiro Soto MD at [facility] Other - see comments Left: Arterial [employer] [id number] / / Description:6F Angio-Seal Ev olution Procedures [...] 0.6 - 1.3 mg/dL POC Device Number [id number] [facility] POC Performer [id number] [facility] Blood 09/26/2024 9:13 AM CDT 09/26/2024 9:13 AM CDT us Xiomara Cooper NP LAB BLOOD ORDERABLES Final Res [facility] [address] [facility]. Department of [employer] [place] [address] * CTA Abdomen Pelvis (09/26/2024 [...] Result from Last 3 Months Insurance CHOICE [facility] [place] Advance Directives For more information, please contact: [phone] * Full Code (Latest Code Status on [...] 2:43 PM 11/06/2019 2:43 PM Care Teams Automobile Mechanic Supervisor Relationship Specialty Start Date End Date Jose Cruz Ramirez MD [address] [place] [id number] PCP - General Emergency Medicine 09/26/24 Nicolás Gonzalez MD Consulting Physician Cardiology 09/15/19 Roshan Munson MD Surgeon Vascular Surgery 02/18/21
[2024-10-03] MEDS: SODIUM CHLORIDE 0.9% IV 1,000 ML 999 ML IV CONT (00:50)
[2024-10-03] MEDS: ONDANSETRON INJ 4 MG/2 ML VIAL IV PUSH (00:51)
--- NOTE | 2024-10-03 00:54 | ED.GENADULT ---
HPI - General Adult General Chief complaint: Urogenital-Female Stated complaint: N/V fever-unresolved UTI-sent by PMD Time Seen by Provider: 10/03/24 00:22 History of Present Illness HPI narrative: Patient is a 58-year-old female presents emergency department chief complaint abdominal pain. 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 Nursing and ancillary documentation was reviewed. COUNTS INCLUDE 234 BEDS AT THE [facility] Family History Family History Grandparent Family history of malignant neoplasm of breast Mother Family history of coronary artery disease Sibling Family history of malignant neoplasm of breast in first degree relative Social History Social History Smoking status: Never smoker Alcohol intake: never Gender identity (if verbalized by the patient): Female Exam Narrative: GENERAL: Well-appearing, well-nourished, and in no acute distress. HEAD: Normocephalic, atraumatic. EYES: PERRLA and EOMI. ENT: Nares clear, no rhinorrhea or epistaxis. Mucous membranes moist. NECK: Supple. CHEST: Clear to auscultation. No respiratory distress. HEART: Regular rate and rhythm. No murmur heard. Normal peripheral pulses. ABDOMEN: Soft, diffusely tender to palpation, nondistended, normal active bowel sounds. EXTREMITIES: Normal range of motion. No edema. SKIN: Warm, dry, no rash. NEURO: No focal deficits. Alert and oriented x3. PSYCH: Normal mood and affect. Course Vital Signs Vital signs: Vital Signs Temperature 36.3 C L 10/02/24 19:46 Pulse Rate 74 10/02/24 19:46 Respiratory Rate 15 10/02/24 19:46 Blood Pressure 144/94 H 10/02/24 19:46 Pulse Oximetry 98 10/02/24 19:46 Oxygen Delivery Room Air 10/02/24 19:46 Temperature 36.3 C L 10/02/24 19:46 Pulse Rate 50 L 10/03/24 03:47 Respiratory Rate 16 10/03/24 03:47 Blood Pressure 140/84 10/03/24 03:47 Pulse Oximetry 97 10/03/24 03:47 Oxygen Delivery Room Air 10/02/24 19:46 Medical Decision Making MDM Narrative Medical decision making narrative: Differential diagnosis includes intra-abdominal infection, diverticulitis, colitis, pyelonephritis, Laboratory studies were obtained on the patient which showed a white count 7.2 electrolytes are within normal limits urinalysis showed 16-20 white blood cells in the urine 4+ bacteria 1+ leukocyte esterase CT scan of the abdomen pelvis showed normal appendix no bowel obstruction 8 Vital Signs Vital Signs: Vital Signs Temperature 36.3 C L 10/02/24 19:46 Pulse Rate 74 10/02/24 19:46 Respiratory Rate 15 10/02/24 19:46 Blood Pressure 144/94 H 10/02/24 19:46 Pulse Oximetry 98 10/02/24 19:46 Oxygen Delivery Room Air 10/02/24 19:46 Temperature 36.3 C L 10/02/24 19:46 Pulse Rate 50 L 10/03/24 03:47 Respiratory Rate 16 10/03/24 03:47 Blood Pressure 140/84 10/03/24 03:47 Pulse Oximetry 97 10/03/24 03:47 Oxygen Delivery Room Air 10/02/24 19:46 Lab Data 10/02/24 23:59 10/02/24 23:59 Labs: Lab Results 10/02/24 10/02/24 Range/Units 21:58 23:59 WBC 7.2 (4.5-10.0) K/mm3 RBC 4.42 (4.2-5.4) M/mm3 Hgb 13.3 (12.0-15.0) g/dL Hct 39.0 (37.0-47.0) % MCV 88.2 (80-100) fl MCH 30.1 (26-34) pg MCHC 34.1 (32-36) g/dl RDW 12.9 (11.5-14.5) % Plt Count 183 (150-375) k/mm3 MPV 7.6 (7.4-10.4) fl Immature Gran % (Auto) 0.4 (0-0.5) % Neut % (Auto) 52.3 (45.5-73.1) % Lymph % (Auto) 37.4 (18.3-44.2) % [place] % (Auto) 8.5 (2.6-8.5) % Eos % (Auto) 1.0 (0-4.4) % Baso % (Auto) 0.4 (0.2-1.2) % Lymph # (Auto) 2.68 (0.9-3.2) K/mm3 [place] # (Auto) 0.6 (0.1-0.6) K/mm3 Eos # (Auto) 0.1 (0-0.3) K/mm3 Baso # (Auto) 0.0 (0.0-0.1) K/mm3 Abs Immat Gran (auto) 0.03 (0.00-0.031) K/mm3 Absolute Neuts (auto) 3.7 (1.3-6.7) K/mm3 Absolute Nucleated RBC 0.000 (0.0-0.012) K/mm3 Nucleated RBC % 0.0 (0.0-0.2) % Sodium 136 L (137-145) mmol/L Potassium 4.2 (3.4-5.0) mmol/L Chloride 105 (98-107) mmol/L Carbon Dioxide 24 (22-30) mmol/L Anion Gap 7 (4-12) mmol/L BUN 19 H (7-17) mg/dL Creatinine 0.79 (0.7-1.0) mg/dL Estim Creat Clear Calc 71 ml/min Estimated GFR > 60 (59 - ) Glucose 95 (65-110) mg/dL Calcium 9.4 (8.4-10.2) mg/dL Total Bilirubin 0.8 (0.2-1.3) mg/dL AST 32 (14-36) U/L ALT 45 H (6-35) U/L Alkaline Phosphatase 98 (38-126) U/L Total Protein 7.0 (6.3-8.2) g/dL Albumin 4.3 (3.5-5.1) g/dL Urine Color Yellow (Yellow) Urine Appearance Clear (Clear) Urine pH 5.5 (5.0-9.0) Ur Specific [place] 1.017 (1.001-1.035) Urine Protein Negative (Negative) mg/dL Urine Glucose (UA) Negative (Negative) mg/dL Urine Ketones Negative (Negative) mg/dL Ur Blood (Man) Negative (Negative) Urine Nitrate Negative (Negative) Urine Bilirubin Negative (Negative) Urine Urobilinogen 1.0 (<2.0) mg/dL Leukocyte Esterase Rfl 1+ H (Negative) BETSY/UL Urine RBC 3-5 H (0-2) /hpf Urine WBC 16-20 H (0-3) /hpf Ur Squamous Epith Cells Rare (Few) /hpf Urine Bacteria 4+ H /hpf Urine Mucus Present /lpf Discharge Plan Discharge Clinical Impression: Abdominal pain, UTI (urinary tract infection) Lipoma Qualifiers: Lipoma location: other site Qualified Code(s): D17.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
[2024-10-03 03:47] VITALS: BP 140/84; PULSE 50; RESP 16; O2SAT 97
[2024-10-03 04:50] VITALS: BP 140/56; PULSE 68; RESP 15; O2SAT 100
== END 2024-10-03 04:51 | disposition home or self-care (01) ==
PROVIDERS: Emergency Medicine; Emergency Provider Emergency Medicine; PCP Emergency Medicine
DX: N39.0 Urinary tract infection, site not specified (principal); D17.79 Benign lipomatous neoplasm of other sites; R10.9 Unspecified abdominal pain
CPT/HCPCS: 36415; 74177; 80053; 81001; 85025; 87086; 96361; 96365; 96375; 99284; J0696; J2405; J7030; Q9967